=== PATIENT | male | born 1955 | race African-American/Black ===

== ENCOUNTER 2018-01-20 07:22 | Inpatient (IN) | payer MEDICAID ==
[~2018-01-20] VITALS: Ht 182.9 cm; Wt 92.1 kg
[2018-01-20 07:24] VITALS: BP 175/107
--- NOTE | 2018-01-20 07:35 | NUR ---
PT AMBULATED TO ER BED 06
--- NOTE | 2018-01-20 07:40 | NUR ---
PT. CAME INTO THE ED W/ DUE TO R FOOT PAIN X 5 DAYS. PT. STATES " ON MONDAY I JUMPED OFF MY TRUCK AND FELT A ROCK POKE MY FOOT SINCE THEN IT STARTED SWELLING BUT YESTERDAY IT STARTED SWELLING MORE AND IT STARTED DRAINING". PT. HAS A CIRCULAR OPEN WOUND ON TOP OF FOOT IN BETWEEN GREAT TOE AND SECOND METATARSAL, PURULENT DRAINAGE NOTED. BOTTOM OF FOOT A PUNCTURE WOUND IS NOTED, NO DRAINAGE. PT. HAS 2+ NON PITTING SWELLING TO R FOOT, HOT TO TOUCH AND REDNESS ON TOP OF FOOT TO ANKLE. PT. ABLE TO WIGGLE TOES AND SENSATION INTACT. PT. DENIES ANY FEVERS OR DIZZINESS AT THIS TIME. ER MD NOTIFIED. WILL CONTINUE TO MONITOR.
[2018-01-20] MEDS ORDERED: CLINDAMYCIN 300 MG in DEXTROSE 5% 50 ML IV ONE (07:50)
[2018-01-20] MEDS ORDERED: LEVOFLOXACIN 500 MG/D5W PREMIX 100 ML IV ONE (07:50)
[2018-01-20] MEDS ORDERED: NACL 0.9% 1,000 ML IV SCH (07:50)
[2018-01-20] MEDS ORDERED: KETOROLAC 30 MG/ML VIAL IVP ONE (07:50)
[2018-01-20] MEDS ORDERED: CLINDAMYCIN 600 MG/4 ML VIAL ONE (08:17)
[2018-01-20 08:22] LABS: BASOPHILS % (AUTO) 0.3 % (0.0-2.0); EOSINOPHILS # (AUTO) 0.1 K/uL (0-0.4); EOSINOPHILS % (AUTO) 1.6 % (0.0-4.0); HEMATOCRIT 31.4 % (36-52); HEMOGLOBIN 10.1 g/dL (12.0-18.0); LYMPHOCYTES # (AUTO) 1.1 K/uL (2.0-11.5); LYMPHOCYTES % (AUTO) 16.7 % (20.5-51.1); MEAN CORPUSCULAR HEMOGLOBIN 29 pg (27-31); MEAN CORPUSCULAR HGB CONC 32 g/dL (33-37); MONOCYTES # (AUTO) 0.6 K/uL (0.8-1.0); MONOCYTES % (AUTO) 8.7 % (1.7-9.3); NEUTROPHILS # (AUTO) 4.9 K/uL (1.8-7.7); NEUTROPHILS % (AUTO) 72.7 % (42.2-75.2); PLATELET COUNT (AUTO) 203 K/uL (140-450); RED BLOOD CELL COUNT(AUTO) 3.52 MIL/uL (4.20-6.10); RED CELL DISTRIBUTION WIDTH 15.1 % (11.6-13.7); WHITE BLOOD COUNT (AUTO) 6.8 K/uL (4.8-10.8)
[2018-01-20 08:36] LABS: ANION GAP 11.5 (8-16); CARBON DIOXIDE 26.9 mmol/L (21-32); CREATININE 1.2 mg/dL (0.7-1.3); POTASSIUM 4.4 mmol/L (3.5-5.1)
[2018-01-20 08:41] LABS: PROTHROMBIN TIME 10.6 secs (10.8-13.4)
[2018-01-20 08:42] LABS: ALBUMIN 2.7 g/dL (3.4-5.0); TOTAL BILIRUBIN 0.2 mg/dL (0.0-1.0)
--- NOTE | 2018-01-20 08:52 | NUR ---
pt. resting comfortably in bed, rr even and unlabored. pt. can not provide urine at this time, provided a cup of water. er md garcia notified. will continue to monitor.
[2018-01-20] MEDS ORDERED: IBUPROFEN 600 MG TAB PO PRN (09:25)
[2018-01-20] MEDS ORDERED: ACETAMINOPHEN 325 MG TAB PO PRN (09:25)
[2018-01-20] MEDS ORDERED: ZOLPIDEM 5 MG TAB PO PRN (09:25)
[2018-01-20] MEDS ORDERED: DOCUSATE SODIUM 100 MG GELCAP PO PRN (09:25)
[2018-01-20] MEDS ORDERED: LORazepam 2 MG/ML VIAL IM/IVP PRN (09:25)
[2018-01-20] MEDS ORDERED: ONDANSETRON 4 MG/2 ML VIAL IM/IVP PRN (09:25)
[2018-01-20] MEDS ORDERED: HYDROcodone/APAP 7.5/325 MG 1 TAB PO PRN (09:25)
[2018-01-20] MEDS ORDERED: METF500T PO (09:27)
[2018-01-20] MEDS ORDERED: LISI30TA6 PO (09:27)
--- NOTE | 2018-01-20 09:33 | NUR ---
B/P OF 183/102, PT. DENIES DIZZYNESS OR TREADWELL AT THIS TIME, OR VISUAL DISTURBANCES. ER MD THOMPSON NOTIFIED.
[2018-01-20] MEDS ORDERED: ENALAPRILAT 2.5 MG/2 ML VIAL IVP ONE (09:40)
--- NOTE | 2018-01-20 10:00 | NUR ---
PT. STILL UNABLE TO PROVIDE URINE, RR EVEN AND UNLABORED. PROVIDED WITH WATER. ER MD THOMPSON NOTIFIED.
--- NOTE | 2018-01-20 10:13 | NUR ---
Patient will be admitted to care of DR. CASTORENA . Admited to TELEMETRY . Will go to room 106A. Belongings list completed. Report to JORY TORRES .
--- NOTE | 2018-01-20 10:15 | NUR ---
PT ARRIVED FROM ER IN [facility], REPORT RECEIVED, PT AMBULATES FROM HALLWAY TO BED WITH STEADY GAIT, AAOX4, RESP EVEN UNALBORED, SKIN WARM DRY COLOR WNL, RIGHT FOOD WITH OPEN WOUND, S/P "STEPPED ON ROCK ON MONDAY" WHITE/YELLOW DRAINAGE NOTED ON TOP, DRY BLOOD ON BOTTOM, VITALS TABLE, PT ORIENTED TO ROOM AND FLOOR, CALL KRUEGER WITHIN REACH, RIGHT FOOT ELEVATED ON PILLOW, WILL CONTINUE TO MONITOR
[2018-01-20 10:30] VITALS: BP 180/110
[2018-01-20 10:36] LABS: AMYLASE 27 U/L (25-115); CHOL/HDL RATIO 2.1 (1-4.5); FREE T4 (FREE THYROXINE) 1.08 ng/dL (0.76-1.46); HDL CHOLESTEROL 50 mg/dL (40-60); LDL (CALC) 47 mg/dL (60-100); LIPASE 84 U/L (73-393); MAGNESIUM 1.8 mg/dL (1.8-2.4); PHOSPHORUS 3.3 mg/dL (2.5-4.9); THYROID STIMULATING HORMONE 1.04 uIU/mL (0.34-3.74); TRIGLYCERIDES 37 mg/dL (30-150)
--- NOTE | 2018-01-20 10:50 | NUR ---
MADE AWARE OF INCREASED BP 180/110
[2018-01-20] MEDS ORDERED: hydrALAZINE 20 MG/ML VIAL IVP SCH (11:00)
[2018-01-20] MEDS: NACL 0.9% 1,000 ML IV SCH ×2 (11:33→19:26)
--- NOTE | 2018-01-20 11:42 | NUR ---
PT RESTING COMFORTABLY IN NAD, RESP EVEN UNLABORED, STATES ON AND OFF PAIN 10/17, DENIES NEED FOR MEDICATION, BP REMAINS HIGH 190/110, HYDRALAZINE GIVEN IVP PER ORDER
[2018-01-20] MEDS ORDERED: DEXTROSE 50% 50 ML SYR IVP PRN (12:35)
[2018-01-20] MEDS ORDERED: INSULIN LISPRO SLIDING SCALE 100 UNITS/ML VIAL SUBQ PRN (12:35)
--- NOTE | 2018-01-20 12:35 | NUR ---
BP IMPROVED TO 162/98, PT DENIES PAIN, DENIES TREADWELL, DENIES OTHER DISCOFMORT, WILL CONTINUE TO MONITOR
[2018-01-20] MEDS ORDERED: LISI-420 PO (12:43)
[2018-01-20] MEDS ORDERED: LEVOFLOXACIN 750 MG/D5W PREMIX 150 ML IV SCH (13:00)
--- NOTE | 2018-01-20 13:30 | NUR ---
DR OCONNOR (PODIATRY) AT BEDSIDE
[2018-01-20 13:50] LABS: APPEARANCE,URINE CLEAR (CLEAR); BILIRUBIN,URINE NEGATIVE (NEGATIVE); BLOOD, URINE NEGATIVE (NEGATIVE); COLOR,URINE YELLOW (YELLOW); LEUKOCYTE ESTERASE ,URINE NEGATIVE (NEGATIVE); NITRITE, URINE NEGATIVE (NEGATIVE); PH,URINE 5.5 (5.0-9.0); UGLUCOSE NEGATIVE (NEGATIVE)
[2018-01-20 14:02] LABS: BENZODIAZEPINE, URINE NEG. ng/mL (NEG <=200); CANNABINOID, URINE NEG. ng/mL (NEG <=50); COCAINE, URINE NEG. ng/mL (NEG <=300); OPIATE, URINE NEG. ng/mL (NEG <=2000); PHENCYCLIDINE SCREEN,URINE NEG. ng/mL (NEG <=25)
[2018-01-20 14:10] LABS: BARBITURATE, URINE NEG. ng/ml (NEG <=200)
[2018-01-20] MEDS: CLINDAMYCIN PHOS 600MG/D5W PM 50 ML IV SCH ×2 (14:51→21:01)
[2018-01-20 16:00] VITALS: BP 163/99
[2018-01-20] MEDS: BLOOD GLUCOSE MONITORING 1 DEV DEV FS SCH ×2 (16:43→21:00)
--- NOTE | 2018-01-20 18:45 | NUR ---
PT WALKING AROUND IN HALLWAY WITH STEADY GAIT
--- NOTE | 2018-01-20 19:20 | NUR ---
REPORT GIVEN TO INSURANCE INSTRUCTOR, PT IN STABLE CONDITION.
--- NOTE | 2018-01-20 19:21 | NUR ---
RECEIVED REPORT FROM DAY SHIFT RN FOR CONTINUITY OF CARE. PT IS A/OX4, ON ROOM AIR. PT IS ABLE TO MAKE NEEDS KNOWN, ABLE TO FOLLOW COMMANDS. RESPIRATIONS EVEN AND UNLABORED AT THE MOMENT. PT IS S/P I&D ON RIGHT FOOT. DRESSING DRY AND INTACT. PT HAS 2G IV TO EACH LEFT AC, ASYMPTOMATIC, INTACT AND PATENT. DISCUSSED PLAN OF CARE WITH PT, PT VERBALIZED UNDERSTANDING. VITAL SIGNS WITHIN NORMAL LIMITS. PT STABLE, NO SIGNS OF DISTRESS NOTED AT THIS TIME. BED IN LOWEST POSITION, BED ALARM ON. CALL LIGHT WITHIN REACH, WILL CONTINUE TO MONITOR.
[2018-01-20 19:58] VITALS: BP 167/102
[2018-01-20] MEDS: metFORMIN 500 MG TAB PO SCH (21:01)
--- NOTE | 2018-01-20 21:03 | NUR ---
ADMINISTERED SCHEDULED MEDICATIONS, PT TOLERATED WELL.
[2018-01-21] VITALS: BP 184/106
--- NOTE | 2018-01-21 00:25 | NUR ---
BLOOD PRESSURE ELEVATED AT 184/106, OTHER VITAL SIGNS WITHIN NORMAL LIMITS. PT STABLE, NO SIGNS OF DISTRESS NOTED AT THIS TIME. BED IN LOWEST POSITION, BED ALARM ON. CALL LIGHT WITHIN REACH. SPOKE TO DR PANIAGUA ABOUT BLOOD PRESSURE, DR PANIAGUA WILL ORDER BP MEDICATION.
[2018-01-21] MEDS ORDERED: HYDROCHLOROTHIAZIDE 25 MG TAB PO SCH ×3 (01:00→12:23)
--- NOTE | 2018-01-21 01:26 | NUR ---
ADMINISTERED ORDERED BLOOD PRESSURE MEDICATION, PT TOLERATED WELL.
--- NOTE | 2018-01-21 03:13 | NUR ---
PT STABLE, NO SIGNS OF DISTRESS NOTED AT THIS TIME. BED IN LOWEST POSITION, BED ALARM ON. CALL LIGHT WITHIN REACH, WILL CONTINUE TO MONITOR.
[2018-01-21 04:00] VITALS: BP 172/101
[2018-01-21] MEDS ORDERED: NIFEdipine 30 MG TABER PO SCH ×2 (04:00→13:30)
--- NOTE | 2018-01-21 04:03 | NUR ---
B/P STILL HIGH, OTHER VITAL SIGNS WITHIN NORMAL LIMITS. SPOKE TO DR PANIAGUA AND DR TAPIA ABOUT PT BLOOD PRESSURE. DR ORDERED MEDICATION FOR B/P. ADMINISTERED MEDICATION, PT TOLERATED WELL. PT STABLE, NO SIGNS OF DISTRESS NOTED AT THIS TIME. BED IN LOWEST POSITION, BED ALARM ON. CALL LIGHT WITHIN REACH, WILL CONTINUE TO MONITOR.
[2018-01-21] MEDS: CLINDAMYCIN PHOS 600MG/D5W PM 50 ML IV SCH ×3 (05:49→20:44)
[2018-01-21] MEDS: BLOOD GLUCOSE MONITORING 1 DEV DEV FS SCH ×4 (06:30→20:41)
--- NOTE | 2018-01-21 06:35 | NUR ---
SET UP NEW BAG OF IV FLUIDS.
--- NOTE | 2018-01-21 07:19 | NUR ---
ENDORSED PT TO DAY SHIFT RN FOR CONTINUITY OF CARE. PT IN STABLE CONDITION.
--- NOTE | 2018-01-21 07:20 | NUR ---
RECEIVED REPORT FROM PM NURSE AT THE BEDSIDE. INTRODUCED SELF AND UPDATED HIS BOARD. PT SLEEPING , DENIES PAIN. HAS LFT AC 20G IV , NS INFUSING @ 120 ML/HR. NO SIGN OF DISTRESS. HAS THE WOUND ON RT FOOT , I&D PERFORMED , BATCH TANK CONTROLLER CAME AND SAW THE PT, SAMPLE SENT TO THE LAB FOR CULTURE BY PREVIOUS SHIFT NURSE. WILL CONTINUE TO MONITOR THE PT.
[2018-01-21 07:57] VITALS: BP 170/104
[2018-01-21] MEDS ORDERED: LISINOPRIL 20 MG TAB PO SCH (09:00)
[2018-01-21] MEDS: LACTOBACILLUS RHAMNOSUS GG 1 EACH CAP PO SCH (09:20)
[2018-01-21] MEDS: metFORMIN 500 MG TAB PO SCH ×2 (09:20→20:45)
[2018-01-21] MEDS: LEVOFLOXACIN 750 MG/D5W PREMIX 150 ML IV SCH (09:41)
--- NOTE | 2018-01-21 09:52 | NUR ---
ADMINISTERED MEDS TO PT ORDERED. PT STABLE , NO SIGN OF DISTRESS. PT TOLERATED MEDS WELL. PT STATES THAT HIS WOUND WAS CHANGED THIS MORNING, DENIES ANY PAIN ON HIS FOOT. INSTRUCTED HIM TO USE THE CALL LIGHT TO ASK FOR HELP. WILL CONTINUE TO MONITOR THE PT.
--- NOTE | 2018-01-21 10:30 | NUR ---
CHECKED ON PT. LYING ON HIS BACK.ABX INFUSING WELL AT THIS TIME. NO SIGN OF DISTRESS . PT DENIES PAIN. PT ASKED TO TURN OFF LIGHT.WILL CONTINUE TO MONITOR THE PT.
--- NOTE | 2018-01-21 11:25 | NUR ---
CHECKED ON PT. BP 180/106. STUDENT NURSE STATES PT WENT TO REST ROOM AND CAME BACK.WILL RECHECK THE BP IN 15 MIN. FAMILY AT THE BEDSIDE. WILLCONTINUE TO MONITOR PT.
[2018-01-21 12:00] VITALS: BP 170/111
--- NOTE | 2018-01-21 12:50 | NUR ---
ADMINISTERED CLINDAMYCIN TO PT. TOLERATED WELL.NO SIGN OF DISTRESS. DENIES PAIN. ALL SAFETY MEASURE IN PLACE .WILL CONTINUE TO MONITOR PT.
[2018-01-21 16:00] VITALS: BP 162/98
--- NOTE | 2018-01-21 16:30 | NUR ---
CHECKED ON PT. STAYING ON BED. NO SIGN OF DISTRESS. HAD BRIEF WALK AROUND THE CASTRO , STATES HE FEELS BETTER AFTER HE HAD WALK. ADMINISTERED NIFEDIPINE 30 MG TO CONTROL HIS BP. DENIES PAIN. ALL SAFETY MEASURE IN PLACE. WILL CONTINUE TO MONITOR THE PT.
--- NOTE | 2018-01-21 19:00 | NUR ---
ENDORSED PT TO PM NURSE AT BEDSIDE. PT IN STABLE CONDITION.
[2018-01-21] MEDS: NACL 0.9% 1,000 ML IV SCH (19:26)
[2018-01-21 19:51] VITALS: BP 156/99
--- NOTE | 2018-01-21 20:45 | NUR ---
ADMINISTERED SCHEDULED MEDICATIONS, PT TOLERATED WELL.
[2018-01-22] VITALS: BP 159/98
--- NOTE | 2018-01-22 | NUR ---
VITAL SIGNS WITHIN NORMAL LIMITS. PT STABLE, NO SIGNS OF DISTRESS NOTED AT THIS TIME. BED IN LOWEST POSITION, BED ALARM ON. CALL LIGHT WITHIN REACH, WILL CONTINUE TO MONITOR.
[2018-01-22 04:10] VITALS: BP 162/102
[2018-01-22] MEDS: CLINDAMYCIN PHOS 600MG/D5W PM 50 ML IV SCH ×2 (04:20→13:00)
--- NOTE | 2018-01-22 04:22 | NUR ---
ADMINISTERED ORDERED MEDICATION FOR BP. PT TOLERATED WELL.
[2018-01-22] MEDS ORDERED: HYDROCHLOROTHIAZIDE 25 MG TAB PO SCH ×2 (05:00→09:00)
[2018-01-22] MEDS: BLOOD GLUCOSE MONITORING 1 DEV DEV FS SCH ×2 (06:09→11:47)
--- NOTE | 2018-01-22 06:12 | NUR ---
ENDORSED PT TO AUTOMATIC PAINT SPRAYER OPERATOR FOR CONTINUITY OF CARE. PT IN STABLE CONDITION.
--- NOTE | 2018-01-22 07:10 | NUR ---
RECEIVED PATIENT REPORT AT BEDSIDE. PATIENT AWAKE, ALERT AND ORIENTED. NO S/S OF DISTRESS NOTED. PATIENT DENIES PAIN AT THIS TIME. RIGHT FOOT ELEVATED ON A PILLOW. DRESSING ON THE RIGHT FOOT CLEAN, DRY AND INTACT. BED LOWERED WITH CALL LIGHT WITHIN REACH. WILL CONTINUE TO MONITOR
[2018-01-22] MEDS ORDERED: metFORMIN 500 MG TAB PO SCH (07:13)
[2018-01-22 07:35] LABS: BASOPHILS % (AUTO) 0.6 % (0.0-2.0); EOSINOPHILS # (AUTO) 0.2 K/uL (0-0.4); EOSINOPHILS % (AUTO) 3.1 % (0.0-4.0); HEMATOCRIT 33.5 % (36-52); HEMOGLOBIN 10.9 g/dL (12.0-18.0); LYMPHOCYTES # (AUTO) 1.6 K/uL (2.0-11.5); LYMPHOCYTES % (AUTO) 28.2 % (20.5-51.1); MEAN CORPUSCULAR HEMOGLOBIN 28 pg (27-31); MEAN CORPUSCULAR HGB CONC 32 g/dL (33-37); MEAN CORPUSCULAR VOLUME 87.8 fL (80-94); MONOCYTES # (AUTO) 0.5 K/uL (0.8-1.0); MONOCYTES % (AUTO) 8.6 % (1.7-9.3); NEUTROPHILS # (AUTO) 3.3 K/uL (1.8-7.7); NEUTROPHILS % (AUTO) 59.5 % (42.2-75.2); PLATELET COUNT (AUTO) 248 K/uL (140-450); RED BLOOD CELL COUNT(AUTO) 3.81 MIL/uL (4.20-6.10); RED CELL DISTRIBUTION WIDTH 14.4 % (11.6-13.7); WHITE BLOOD COUNT (AUTO) 5.6 K/uL (4.8-10.8)
[2018-01-22 07:54] VITALS: BP 158/99
[2018-01-22 08:17] LABS: MAGNESIUM 1.4 mg/dL (1.8-2.4); PHOSPHORUS 3.9 mg/dL (2.5-4.9)
[2018-01-22 08:19] LABS: ANION GAP 9.8 (8-16); CARBON DIOXIDE 27.9 mmol/L (21-32); CREATININE 1.1 mg/dL (0.7-1.3); POTASSIUM 3.7 mmol/L (3.5-5.1)
[2018-01-22] MEDS: LEVOFLOXACIN 750 MG/D5W PREMIX 150 ML IV SCH (08:21)
[2018-01-22] MEDS: LACTOBACILLUS RHAMNOSUS GG 1 EACH CAP PO SCH (08:22)
[2018-01-22] MEDS ORDERED: MAG SULF 2000 MG/WATER PREMIX 100 ML IV ONE (08:40)
[2018-01-22] MEDS ORDERED: LISINOPRIL 20 MG TAB PO SCH (09:00)
[2018-01-22] MEDS ORDERED: NIFEdipine 30 MG TABER PO SCH (09:00)
[2018-01-22] MEDS ORDERED: LEVO750T2 PO (09:06)
[2018-01-22] MEDS ORDERED: LISI-420 PO (09:06)
[2018-01-22] MEDS ORDERED: CLIN300C2 PO (09:06)
[2018-01-22] MEDS ORDERED: ADA30 PO (09:06)
[2018-01-22] MEDS ORDERED: LACT10CA PO (09:06)
[2018-01-22] MEDS ORDERED: ORE25 PO (09:06)
[2018-01-22] MEDS ORDERED: [UNRECOGNIZED DRUG - CODE] PO (09:06)
--- NOTE | 2018-01-22 09:15 | NUR ---
PT. WAS SEEN BY DR. OCONNOR FOR RIGHT FOOT DIABETIC ULCER, ORDER GIVEN NOT TO CHANGE DRESSING.AND SHE WILL FOLLOW UP WITH THE PT CARE.
--- NOTE | 2018-01-22 09:18 | NUR ---
PATIENT HAS BEEN SCREENED AND CATEGORIZED MODERATE NUTRITION RISK. PATIENT WILL BE SEEN WITHIN 3-5 DAYS OF ADMISSION. 01/22/18 01/24/[address]
[2018-01-22] MEDS: MAGNESIUM SULFATE 1GM in DEXTROSE 5% 100 ML PREMIX IV SCH ×2 (10:25→12:12)
--- NOTE | 2018-01-22 11:45 | NUR ---
PATIENT PROVIDED WITH CRUTCHES. PT ADJUSTED CRUTCHES FOR PATIENT'S HEIGHT
--- NOTE | 2018-01-22 11:55 | NUR ---
AWAKE AND ALERT RESPONSIVE TO TUNNEL KILN FIRER VERBAL COMMANDS TOLERATED INCENTIVE SPIROMETRY THERAPY WELL WITHOUT INCIDENT ENCOURAGED PATIENT WITH ACKNOWLEDGEMENT TO USE EVERY 1-2 HOURS WHILE AWAKE
--- NOTE | 2018-01-22 13:13 | NUR ---
CALLED [facility] AND WAS TOLD THAT [facility] IS DELIGATED FOR THIS PATIENT. INITIAL REVIEW FAXED ER REPORT, H&P CONSULT, PROGRESS NOTE AND DISCHARGE SUMMARY FAXED TO [facility] [phone] PHONE [phone].
--- NOTE | 2018-01-22 14:00 | NUR ---
PATIENT DISCHARGED TO HOME. DISCHARGE INSTRUCTIONS AND DISCHARGE PRESCRIPTIONS GIVEN. PATIENT VERBALIZED UNDERSTANDING. IV LINE DISCONTINUED. PATIENT LEFT WITH ALL HIS BELONGINGS AND DISCHARGE PAPERS. PATIENT LEFT IN STABLE CONDITION
--- NOTE | 2018-01-22 14:28 | NUR ---
P.T. NOTES P.T. MEJIA COMPLETED; NURSING TO AMBULATE PATIENT W/ CRUTCHES & R POST OP SHOE. Addendum: 01/22/18 at 1429 by Milena Thomas PT Amended: Links added.
== END 2018-01-22 14:00 | disposition home or self-care (01) | DRG 364 ==
LOC: MED 07:22 → MTU 09:25
PROVIDERS: ADMIT Family Medicine; ATTEND Family Medicine
PROC: 0J9Q0ZZ Drainage of Right Foot Subcutaneous Tissue and Fascia, Open Approach (ICD-10-PCS; principal; 2018-01-20)
PROC: 0JBQ0ZZ Excision of Right Foot Subcutaneous Tissue and Fascia, Open Approach (ICD-10-PCS; 2018-01-20)
PROC: 0J9Q0ZZ Drainage of Right Foot Subcutaneous Tissue and Fascia, Open Approach (ICD-10-PCS; 2018-01-20)
PROC: 0JCQ3ZZ Extirpation of Matter from Right Foot Subcutaneous Tissue and Fascia, Percutaneous Approach (ICD-10-PCS; 2018-01-20)
DX: E11.621 Type 2 diabetes mellitus with foot ulcer (principal); L97.519 Non-pressure chronic ulcer of other part of right foot with unspecified severity; E43 Unspecified severe protein-calorie malnutrition; E11.40 Type 2 diabetes mellitus with diabetic neuropathy, unspecified; L08.9 Local infection of the skin and subcutaneous tissue, unspecified; M79.5 Residual foreign body in soft tissue; D64.9 Anemia, unspecified; E11.65 Type 2 diabetes mellitus with hyperglycemia; I10 Essential (primary) hypertension; I16.0 Hypertensive urgency; L03.115 Cellulitis of right lower limb; Z68.27 Body mass index [BMI] 27.0-27.9, adult
CPT/HCPCS: 36415; 36600; 71045; 73620; 73630; 80048; 80053; 80305; 81003; 82140; 82150; 82550; 82553; 82803; 82948; 83036; 83605; 83690; 83735; 84100; 84134; 84439; 84443; 84484; 85025; 85610; 85730; 87040; 87070; 87075; 87081; 87086; 87205; 90471; 90715; 93005; 93925; 93970; 96365; 96375; 97535; 99285; J0360; J1815; J1885; J1956; J3490; J7030; J7060; Q0092

== ENCOUNTER 2018-01-29 10:33 | Inpatient (IN) | payer MEDICAID ==
[~2018-01-29] VITALS: Ht 182.9 cm; Wt 85.8 kg
[~2018-01-29 10:33] MED LIST: ADA30 PO; CLIN300C2 PO; LACT10CA PO; LEVO750T2 PO; LISI-420 PO; ORE25 PO; [UNRECOGNIZED DRUG - CODE] PO
[2018-01-29 10:42] VITALS: BP 139/91
--- NOTE | 2018-01-29 10:50 | NUR ---
PT AMBULATED TO ER BED9.
--- NOTE | 2018-01-29 11:00 | NUR ---
62/M PRESENT TO ER C/O RT FOOT PAIN x 6 DAYS. PT STATES HE STEPPED ON A NAIL 01/19/2018 AND WAS SEEN AT [facility]. PAIN 08/19. CLEAR DISCHARGE. NO REDNESS, NO SWELLING. ER MD MADE AWARE. PT POSITIONED FOR COMFORT. WILL CONTINURED TO MONITOR HX: DM AND HTN MEDS: METFORMIN 850MG, LISINOPRIL 20MG, NIFEDIPINE 30MG, LACTINEX , HCTZ 50MG, CLINDAMYCIN 300MG AND LEVAQUIN 500MG
--- NOTE | 2018-01-29 11:12 | NUR ---
Patient being evaluated by physician at bedside.
[2018-01-29] MEDS ORDERED: NACL 0.9% 2,000 ML IV SCH (11:27)
[2018-01-29] MEDS ORDERED: fentaNYL 0.05 MG/ML VIAL IVP ONE (11:30)
[2018-01-29] MEDS ORDERED: PIPERACILLIN/TAZOBACTAM 3.375 GM in DEXT 5% MINI-BAG PLUS 50 ML IV ONE (11:30)
--- NOTE | 2018-01-29 11:37 | NUR ---
EMT AT BEDSIDE FOR EKG
[2018-01-29] MEDS ORDERED: PIPERACILLIN/TAZOBACTAM 3.375 GM VIAL IV ONE (11:38)
--- NOTE | 2018-01-29 11:39 | NUR ---
XRAY AT BEDSIDE
[2018-01-29 12:13] LABS: HEMATOCRIT 33.5 % (36-52); RED BLOOD CELL COUNT(AUTO) 3.83 MIL/uL (4.20-6.10); WHITE BLOOD COUNT (AUTO) 4.5 K/uL (4.8-10.8)
[2018-01-29 12:14] LABS: BASOPHILS % (AUTO) 4.1 % (0.0-2.0); EOSINOPHILS # (AUTO) 0.1 K/uL (0-0.4); LYMPHOCYTES # (AUTO) 1.5 K/uL (2.0-11.5); LYMPHOCYTES % (AUTO) 32.4 % (20.5-51.1); MEAN CORPUSCULAR HEMOGLOBIN 29 pg (27-31); MEAN CORPUSCULAR HGB CONC 33 g/dL (33-37); MEAN CORPUSCULAR VOLUME 87.3 fL (80-94); MONOCYTES # (AUTO) 0.4 K/uL (0.8-1.0); MONOCYTES % (AUTO) 7.9 % (1.7-9.3); NEUTROPHILS # (AUTO) 2.3 K/uL (1.8-7.7); NEUTROPHILS % (AUTO) 53.6 % (42.2-75.2); PLATELET COUNT (AUTO) 305 K/uL (140-450); RED CELL DISTRIBUTION WIDTH 13.2 % (11.6-13.7)
[2018-01-29 12:15] LABS: BASOPHILS # (AUTO) 0.2 K/uL (0.00-0.22)
--- NOTE | 2018-01-29 12:20 | NUR ---
PT AWAKE AND ALERT AND ORIENTED RESTING IN NO APPEARENT DISTRESS
[2018-01-29 12:21] LABS: CARBON DIOXIDE 28.1 mmol/L (21-32); CREATININE 1.7 mg/dL (0.7-1.3); POTASSIUM 4.1 mmol/L (3.5-5.1); PROTHROMBIN TIME 11.3 secs (10.8-13.4)
[2018-01-29 12:26] LABS: TOTAL BILIRUBIN 0.2 mg/dL (0.0-1.0)
[2018-01-29] MEDS ORDERED: HYDROcodone/APAP 5/325 MG 1 TAB TAB PO PRN (13:40)
[2018-01-29] MEDS ORDERED: ZOLPIDEM 5 MG TAB PO PRN (13:40)
[2018-01-29] MEDS ORDERED: DOCUSATE SODIUM 100 MG GELCAP PO PRN (13:40)
[2018-01-29] MEDS: NACL 0.9% 1,000 ML IV SCH (13:40)
[2018-01-29] MEDS ORDERED: LORazepam 2 MG/ML VIAL IM/IVP PRN (13:40)
[2018-01-29] MEDS ORDERED: ACETAMINOPHEN 325 MG TAB PO PRN (13:40)
[2018-01-29] MEDS ORDERED: MORPHINE SULFATE 2 MG/ML SYR IVP PRN (13:40)
--- NOTE | 2018-01-29 14:00 | NUR ---
PT RESTING IN BED IN NO APPEARENT DISTRESS
--- NOTE | 2018-01-29 15:00 | NUR ---
Patient will be admitted to care of DR GURROLA . Admited to TELE . Will go to room 106 B . Belongings list completed. Report to LORNA CORLEY .
--- NOTE | 2018-01-29 15:05 | NUR ---
RECEIVED PT ON UNIT VIA VisibleGainsENDER, PT IS AAOX4, AMBULATORY, PT HAS IV ON HIS LEFT AC, PATENT, INTACT, FLUSHING WELL, PT HAS WOUND ON HIS RIGHT FOOT, NO S/S OF RESPIRATORY DISTRESS OR DISCOMFORT NOTED, PT ON RA, DISCUSSED PLAN OF CARE, PT VERBALIZED UNDERSTANDING, CALL LIGHT WITHIN REACH, WILL CONTINUE TO MONITOR.
[2018-01-29] MEDS ORDERED: DEXTROSE 50% 50 ML SYR IVP PRN (15:20)
[2018-01-29] MEDS ORDERED: INSULIN LISPRO SLIDING SCALE 100 UNITS/ML VIAL SUBQ PRN (15:20)
[2018-01-29 15:50] LABS: MAGNESIUM 1.6 mg/dL (1.8-2.4); PHOSPHORUS 3.7 mg/dL (2.5-4.9); THYROID STIMULATING HORMONE 1.52 uIU/mL (0.34-3.74)
[2018-01-29] MEDS ORDERED: LEVOFLOXACIN 750 MG/D5W PREMIX 150 ML IV SCH (16:00)
[2018-01-29] MEDS: PIPER/TAZO 3.375GM/D5W PREMIX 50 ML IV SCH ×2 (17:09→23:43)
[2018-01-29] MEDS: BLOOD GLUCOSE MONITORING 1 DEV DEV FS SCH ×2 (17:14→20:38)
[2018-01-29] MEDS ORDERED: PIPERACILLIN/TAZOBACTAM 3.375 GM in DEXTROSE 5% 50 ML IV ONE (18:00)
[2018-01-29] MEDS ORDERED: CLINDAMYCIN 300 MG in DEXTROSE 5% 50 ML IV SCH (18:00)
--- NOTE | 2018-01-29 19:20 | NUR ---
ENDORSED PT TO BUFFING WHEEL INSPECTOR NURSE FOR CONTINUITY OF CARE, PT STABLE AT THIS TIME.
--- NOTE | 2018-01-29 19:35 | NUR ---
RECEIVED REPORT FROM DAY SHIFT, PATIENT RESTING IN BED, NO S/S OF DISTRESS NOTED, RESPIRATION EVEN AND UNLABORED, ON ROOM AIR. IV PATENT AND INTACT, INFUSING FLUIDS WELL. DRESSING TO THE RT FOOT DRY AND INTACT, CALL LIGHT WITHIN REACH, SAFETY MEASURE ENSURED, WILL CONTINUE TO MONITOR.
[2018-01-29 20:00] VITALS: BP 147/97
[2018-01-29] MEDS ORDERED: NON-FORMULARY ITEM (Lisinopril 20 MG) PO SCH (21:00)
--- NOTE | 2018-01-30 00:46 | NUR ---
BP 168/102, HR 74, MADE DR. FISHER AWARE. WILL CONTINUE TO MONITOR.
[2018-01-30 00:50] VITALS: BP 168/102
[2018-01-30] MEDS ORDERED: METOPROLOL 25 MG TAB PO SCH (02:00)
--- NOTE | 2018-01-30 02:23 | NUR ---
LOPRESSOR 25MG ADMINISTERED ORDERED. PATIENT TOLERATED WELL. WILL CONTINUE TO MONITOR.
[2018-01-30 04:00] VITALS: BP 154/98
--- NOTE | 2018-01-30 04:02 | NUR ---
VITAL SIGNS STABLE, BP 154/98, HR 75, NO S/S OF DISTRESS NOTED, CALL LIGHT WITHIN REACH, SAFETY MEASURE ENSURED, WILL CONTINUE TO MONITOR.
[2018-01-30] MEDS: PIPER/TAZO 3.375GM/D5W PREMIX 50 ML IV SCH (05:52)
[2018-01-30] MEDS: NACL 0.9% 1,000 ML IV SCH (05:58)
--- NOTE | 2018-01-30 07:25 | NUR ---
ENDORSED PLAN OF CARE TO DAY SHIFT, PATIENT IS IN STABLE CONDITION.
--- NOTE | 2018-01-30 07:30 | NUR ---
RECEIVED REPORT FROM MACHINE STRAW HAT PRESSER NURSE, PT IS SLEEPING IN BED BUT EASILY AWAKEN, PT IS AAOX4, AMBULATORY, PT HAS IV ON HIS LEFT AC, PATENT, INTACT, FLUSHING WELL, NO S/S OF RESPIRATORY DISTRESS OR DISCOMFORT NOTED, PT DENIES PAIN AT THIS TIME, PT RIGHT FOOT IS WRAPPED WITH GAUZE AND JAYESH BANDAGE, DISCUSSED PLAN OF CARE WITH PT, PT VERBALIZED UNDERSTANDING, CALL LIGHT WITHIN REACH.
[2018-01-30] MEDS: BLOOD GLUCOSE MONITORING 1 DEV DEV FS SCH ×4 (07:38→21:06)
[2018-01-30 08:00] VITALS: BP 162/108
[2018-01-30 08:10] LABS: HEMATOCRIT 34.3 % (36-52); HEMOGLOBIN 11.3 g/dL (12.0-18.0); LYMPHOCYTES % (AUTO) 39.9 % (20.5-51.1); MEAN CORPUSCULAR HEMOGLOBIN 29 pg (27-31); MEAN CORPUSCULAR HGB CONC 33 g/dL (33-37); MEAN CORPUSCULAR VOLUME 88.2 fL (80-94); NEUTROPHILS % (AUTO) 48.2 % (42.2-75.2); PLATELET COUNT (AUTO) 286 K/uL (140-450); RED BLOOD CELL COUNT(AUTO) 3.89 MIL/uL (4.20-6.10); RED CELL DISTRIBUTION WIDTH 13.4 % (11.6-13.7); WHITE BLOOD COUNT (AUTO) 4.8 K/uL (4.8-10.8)
[2018-01-30 08:11] LABS: EOSINOPHILS % (AUTO) 2.5 % (0.0-4.0); MONOCYTES % (AUTO) 6.4 % (1.7-9.3)
[2018-01-30] MEDS ORDERED: NIFEdipine 30 MG TABER PO SCH (09:00)
[2018-01-30] MEDS: HYDROCHLOROTHIAZIDE 25 MG TAB PO SCH (09:28)
[2018-01-30] MEDS: LACTOBACILLUS RHAMNOSUS GG 1 EACH CAP PO SCH (09:29)
[2018-01-30] MEDS: NIFEdipine 60 MG TABER PO SCH (09:29)
--- NOTE | 2018-01-30 09:30 | NUR ---
DUE MEDICATION GIVEN, PT TOLERATED WELL, CALL LIGHT WITHIN REACH.
[2018-01-30 09:40] LABS: ANION GAP 12.8 (8-16); CARBON DIOXIDE 27.1 mmol/L (21-32); CREATININE 1.4 mg/dL (0.7-1.3); POTASSIUM 3.9 mmol/L (3.5-5.1)
--- NOTE | 2018-01-30 10:31 | NUR ---
PATIENT HAS BEEN SCREENED AND CATEGORIZED HIGH NUTRITION RISK. PATIENT WILL BE SEEN WITHIN 1-2 DAYS OF ADMISSION. 01/30/18 01/31/[address]
--- NOTE | 2018-01-30 12:05 | NUR ---
PT SLEEPING IN BED AT THIS TIME, CALL LIGHT IS WITHIN REACH.
--- NOTE | 2018-01-30 12:39 | NUR ---
FAXED INITIAL REVIEW TO [facility] [phone] PHONE [phone] SPOKE WITH JEFFERSON AT [facility] AND HE SAID THAT FAXED REVIEWS JUST TO [facility], NOT [facility].
[2018-01-30] MEDS ORDERED: CLINDAMYCIN 600 MG in DEXTROSE 5% 50 ML IV SCH (13:00)
[2018-01-30] MEDS: CLINDAMYCIN PHOS 600MG/D5W PM 50 ML IV SCH ×2 (13:10→21:32)
--- NOTE | 2018-01-30 14:56 | NUR ---
SPOKE WITH DR. TORRES. SHE SAID THEY ARE WAITING FOR THE CULTURES. DID NOT SEE CULTURE IN MICRO. I CALLED NILA CORLEY TO FOLLOW UP IF THE CULTURES WERE DONE.
--- NOTE | 2018-01-30 15:20 | NUR ---
CULTURE OF RIGHT FOOT COLLECTED AND TAKEN TO LAB.
[2018-01-30 16:00] VITALS: BP 130/85
--- NOTE | 2018-01-30 16:47 | NUR ---
01/30/18 RD INITIAL ASSESSMENT COMPLETED PLEASE REFER TO NUTRITION ASSESSMENT UNDER CARE ACTIVITY FOR ESTIMATED NUTRITIONAL NEEDS. 1. [facility] DIET TOLERATED 2. RECOMMEND LUISITO QD 3. RD TO FOLLOW-UP 2-5 DAYS, HIGH RISK ZACHARIAH GRIFFIN RD
--- NOTE | 2018-01-30 16:58 | NUR ---
PT. SEEN BY CLOTH FOLDER MACHINE , DRESSING IN PLACE, PT. WAS INSTRUCTED NO TO CHANGE DRESSING TILL NEXT VISIT. INFORMATION CONFIRMED WITH DR. VALDEZ AND STATE THAT PT ALREADY HAVE A FOLLOW UP APPOINTMENT WITH OUTPATIENT PODIATRY.
--- NOTE | 2018-01-30 17:00 | NUR ---
PT RESTING IN BED, WATCHING TV, NO DISTRESS NOTED, PT DENIES PAIN, CALL LIGHT IS WITHIN REACH.
--- NOTE | 2018-01-30 19:36 | NUR ---
ENDORSED PT TO PRODUCTION CONTROL SUPERVISOR NURSE FOR CONTINUITY OF CARE. PT STABLE AT THIS TIME.
--- NOTE | 2018-01-30 19:40 | NUR ---
RECEIVED REPORT FROM DAY SHIFT RN, PATIENT SITTING IN BED AND WATCHING TV, NO S/S OF DISTRESS NOTED, IV PATENT AND INTACT, INFUSING FLUID WELL. PLAN OF CARE DISCUSSED, PATIENT VERBALIZED UNDERSTANDING, CALL LIGHT WITHIN REACH, SAFETY MEASURE ENSURED, WILL CONTINUE TO MONITOR.
--- NOTE | 2018-01-30 21:35 | NUR ---
DUE MEDICATION GIVEN, PATIENT TOLERATED WELL. NO S/S OF DISTRESS NOTED, CALL LIGHT WITHIN REACH, SAFETY MEASURE ENSURE ENSURED, WILL CONTINUE TO MONITOR.
[2018-01-31] VITALS: BP 159/96
[2018-01-31] MEDS: NACL 0.9% 1,000 ML IV SCH (00:08)
--- NOTE | 2018-01-31 00:10 | NUR ---
PATIENT WAS SLEEPING, EASY TO AROUSE. NO S/S OF DISTRESS NOTED, CALL LIGHT WITHIN REACH, SAFETY MEASURE ENSURED, WILL CONTINUE TO MONITOR.
--- NOTE | 2018-01-31 04:40 | NUR ---
BP 156/96, HR 73, NO S/S OF DISTRESS NOTED, CALL LIGHT WITHIN REACH, SAFETY MEASURE ENSURED, WILL CONTINUE TO MONITOR.
[2018-01-31] MEDS: CLINDAMYCIN PHOS 600MG/D5W PM 50 ML IV SCH (05:20)
[2018-01-31] MEDS: BLOOD GLUCOSE MONITORING 1 DEV DEV FS SCH (05:30)
[2018-01-31 07:34] LABS: WHITE BLOOD COUNT (AUTO) 4.8 K/uL (4.8-10.8)
[2018-01-31 07:35] LABS: BASOPHILS % (AUTO) 4.2 % (0.0-2.0); EOSINOPHILS % (AUTO) 3.1 % (0.0-4.0); HEMATOCRIT 34.7 % (36-52); HEMOGLOBIN 11.2 g/dL (12.0-18.0); LYMPHOCYTES % (AUTO) 15.5 % (20.5-51.1); MEAN CORPUSCULAR HEMOGLOBIN 29 pg (27-31); MEAN CORPUSCULAR HGB CONC 32 g/dL (33-37); MEAN CORPUSCULAR VOLUME 88.2 fL (80-94); MONOCYTES % (AUTO) 5.6 % (1.7-9.3); NEUTROPHILS % (AUTO) 41.6 % (42.2-75.2); PLATELET COUNT (AUTO) 286 K/uL (140-450); RED BLOOD CELL COUNT(AUTO) 3.93 MIL/uL (4.20-6.10); RED CELL DISTRIBUTION WIDTH 13.4 % (11.6-13.7)
--- NOTE | 2018-01-31 07:43 | NUR ---
RECEIVED REPORT FROM GAMING HOST RN. PATIENT IS AAOX4, HAS NO SIGNS AND SYMPTOMS OF ACUTE DISTRESS NOTED AT THIS TIME. HAS IV TO THE LEFT AC 20G, INFUSING NS AT 60 ML/HR. SITE IS CLEAN, DRY, PATENT AND INTACT. DISCUSSED PLAN OF CARE WITH PATIENT AND HE VERBALIZED UNDERSTANDING. RIGHT FOOT HAS JAYESH BANDAGE. BED IN LOWEST POSITION, SIDE RAILS UP X2, CALL LIGHT WITHIN REACH. WILL CONTINUE TO MONITOR.
--- NOTE | 2018-01-31 07:43 | NUR ---
ENDORSED PLAN OF CARE TO DAY SHIFT RN, PATIENT IS IN STABLE CONDITION.
[2018-01-31 07:50] LABS: ANION GAP 10.6 (8-16); CARBON DIOXIDE 26.9 mmol/L (21-32); CREATININE 1.3 mg/dL (0.7-1.3); POTASSIUM 3.5 mmol/L (3.5-5.1)
[2018-01-31 08:00] VITALS: BP 141/88
[2018-01-31] MEDS ORDERED: CLIN300C2 PO (08:50)
[2018-01-31] MEDS ORDERED: SULF-58 PO ×2 (08:55→09:20)
[2018-01-31] MEDS ORDERED: ASCO1CAP75 PO (08:55)
[2018-01-31] MEDS: LACTOBACILLUS RHAMNOSUS GG 1 EACH CAP PO SCH (09:30)
[2018-01-31] MEDS: NIFEdipine 60 MG TABER PO SCH (09:31)
[2018-01-31] MEDS: HYDROCHLOROTHIAZIDE 25 MG TAB PO SCH (09:32)
--- NOTE | 2018-01-31 12:07 | NUR ---
FAXED CONCURRENT REVIEW TO [facility] INCLUDING DC SUMMARY [phone] PHONE [phone] TRACKING NUMBERT [id number]
--- NOTE | 2018-01-31 12:30 | NUR ---
PATIENT HAS DISCHARGE ORDER IN PLACE. EDUCATED PATIENT ON SIGNS AND SYMPTOMS OF INFECTION/DISTRESS TO SEEK EMERGENCY MEDICAL ATTENTION. INFORMED HIM OF THE PRESCRIPTION THAT HE HAS. ALSO INFORMED HIM OF MD'S INSTRUCTIONS. PATIENT VERBALIZED UNDERSTANDING. REMOVED IV FROM SITE, CATHETER INTACT. DRESSING CLEAN AND DRY. REMOVED ID BANDS. ALL BELONGINGS ARE WITH PATIENT. WILL WHEEL PATIENT OUT. PATIENT IS STABLE.
== END 2018-01-31 12:30 | disposition home or self-care (01) | DRG 380 ==
LOC: MED 10:33 → MTU 13:40
PROVIDERS: ADMIT General Practice; ATTEND General Practice
PROC: 0HDMXZZ Extraction of Right Foot Skin, External Approach (ICD-10-PCS; principal; 2018-01-30)
DX: E11.621 Type 2 diabetes mellitus with foot ulcer (principal); L97.519 Non-pressure chronic ulcer of other part of right foot with unspecified severity; N17.0 Acute kidney failure with tubular necrosis; E44.0 Moderate protein-calorie malnutrition; D68.59 Other primary thrombophilia; E87.2 Acidosis; E11.40 Type 2 diabetes mellitus with diabetic neuropathy, unspecified; L03.115 Cellulitis of right lower limb; E11.628 Type 2 diabetes mellitus with other skin complications; E11.65 Type 2 diabetes mellitus with hyperglycemia; I10 Essential (primary) hypertension; E11.69 Type 2 diabetes mellitus with other specified complication; B35.1 Tinea unguium; L84 Corns and callosities; L85.3 Xerosis cutis; Z79.2 Long term (current) use of antibiotics; Z79.899 Other long term (current) drug therapy; Z59.0 Homelessness; Z79.84 Long term (current) use of oral hypoglycemic drugs; Z68.25 Body mass index [BMI] 25.0-25.9, adult
CPT/HCPCS: 36415; 36600; 71045; 73630; 73700; 80048; 80053; 82550; 82553; 82803; 82948; 83036; 83605; 83690; 83735; 83874; 83880; 84100; 84134; 84443; 84484; 85025; 85610; 85730; 87040; 87070; 87075; 87081; 87205; 93005; 93926; 96361; 96365; 96375; 99285; J0696; J1815; J2543; J3010; J3490; J7030; J7060; Q0092

== ENCOUNTER 2020-01-23 14:51 | Inpatient (IN) | payer MEDICAID, SELFPAY ==
[~2020-01-23] VITALS: Ht 190.5 cm; Wt 76.7 kg
[~2020-01-23 14:51] MED LIST changes: -ADA30 PO; +ASCO1CAP75 PO; -LEVO750T2 PO; +METF-336 PO; +NIFE-184 PO; +SULF-58 PO; -[UNRECOGNIZED DRUG - CODE] PO
--- NOTE | 2020-01-23 14:57 | NUR ---
JOSE HENNING ALS TO ER BED 08. RN EVALUATING AT BEDSIDE.
--- NOTE | 2020-01-23 14:57 | NUR ---
PT PLACED IN BED 8 BY EMS.
--- NOTE | 2020-01-23 15:00 | NUR ---
64 Y/O MALE BIBA FROM [facility] FOR ALTERED LEVEL OF CONSCIOUSNESS. PER EMS PT WAS LAST SEEN NORMAL BY STAFF AT FACILITY AROUND 0900. TYPICALLY A [facility] OF 7 AND UPON CHECKING ON PT HE WAS [facility] 4. PT AROUSABLE TO PAIN. PRESENTS ON 2L TRACH TO TBAR. PLACED ON ASSISTANT SERVICE MANAGER, PULSE OX, AND BP CUFF. RR EVEN AND UNLABORED. MEDHX: RESPIRATORY FAILURE, DM, HTN, QUADRAPLEGIC
[2020-01-23 15:03] VITALS: BP 113/68
[2020-01-23] MEDS ORDERED: ESCI5TAB GT ×2 (15:35→23:48)
[2020-01-23] MEDS ORDERED: MULT-1528 GT (15:35)
[2020-01-23] MEDS ORDERED: ROB1 GT ×3 (15:35→23:48)
[2020-01-23] MEDS ORDERED: LOV40I SUBQ (15:35)
[2020-01-23] MEDS ORDERED: ACET-2619 GT ×2 (15:35→23:48)
[2020-01-23] MEDS ORDERED: MIRABULK GT (15:35)
[2020-01-23] MEDS ORDERED: AMLO5TAB GT (15:35)
[2020-01-23] MEDS ORDERED: COLL30OI TP (15:35)
--- NOTE | 2020-01-23 15:53 | NUR ---
16FRENCH GAN REPLACED UPON ARRIVAL TO ER. 100 CC URINE COLLECTED FROM PT.
--- NOTE | 2020-01-23 15:54 | NUR ---
LAB AT BEDSIDE FOR BLOOD DRAW
--- NOTE | 2020-01-23 16:18 | NUR ---
PT TO CT VIA [facility]
--- NOTE | 2020-01-23 16:35 | NUR ---
PT RETURNED FROM CT VIA [facility]
[2020-01-23 16:39] LABS: BASOPHILS # (AUTO) 0.1 K/uL (0.00-0.22); BASOPHILS % (AUTO) 0.4 % (0.0-2.0); EOSINOPHILS % (AUTO) 0.1 % (0.0-4.0); HEMATOCRIT 20.3 % (36-52); LYMPHOCYTES # (AUTO) 1.4 K/uL (2.0-11.5); LYMPHOCYTES % (AUTO) 9.5 % (20.5-51.1); MEAN CORPUSCULAR HEMOGLOBIN 30 pg (27-31); MEAN CORPUSCULAR HGB CONC 32 g/dL (33-37); MEAN CORPUSCULAR VOLUME 91.1 fL (80-94); MONOCYTES # (AUTO) 0.5 K/uL (0.8-1.0); MONOCYTES % (AUTO) 3.7 % (1.7-9.3); NEUTROPHILS # (AUTO) 12.7 K/uL (1.8-7.7); NEUTROPHILS % (AUTO) 86.3 % (42.2-75.2); PLATELET COUNT (AUTO) 561 K/uL (140-450); RED BLOOD CELL COUNT(AUTO) 2.23 MIL/uL (4.20-6.10); RED CELL DISTRIBUTION WIDTH 17.8 % (11.6-13.7); WHITE BLOOD COUNT (AUTO) 14.7 K/uL (4.8-10.8)
[2020-01-23 16:53] LABS: RSV NEGATIVE (NEGATIVE)
[2020-01-23 16:54] LABS: ALBUMIN 1.3 g/dL (3.4-5.0); ANION GAP 9.7 (8-16); CARBON DIOXIDE 27.5 mmol/L (21-32); CREATININE 0.4 mg/dL (0.6-1.3); HEMOGLOBIN 6.6 g/dL (12.0-18.0); POTASSIUM 4.2 mmol/L (3.5-5.1); TOTAL BILIRUBIN 0.2 mg/dL (0.0-1.0)
--- NOTE | 2020-01-23 16:59 | NUR ---
HEMOGLOBIN 6.6 AND HEMATOCRIT 20.3-- CRITICAL VALUE RECEIVED FROM LAB. DR MICHELE MADE AWARE
--- NOTE | 2020-01-23 17:01 | NUR ---
RESTING WITH EYES CLOSED, AROUSABLE TO PAINFUL STIMULI. VSS. WILL CONTINUE TO MONITOR
[2020-01-23 17:05] LABS: PROTHROMBIN TIME 11.3 secs (10.8-13.4)
[2020-01-23 17:15] LABS: APPEARANCE,URINE SL CLOUDY (CLEAR); BILIRUBIN,URINE NEGATIVE (NEGATIVE); BLOOD, URINE NEGATIVE (NEGATIVE); COLOR,URINE YELLOW (YELLOW); LEUKOCYTE ESTERASE ,URINE 2+ (NEGATIVE); NITRITE, URINE NEGATIVE (NEGATIVE); UGLUCOSE NEGATIVE (NEGATIVE)
[2020-01-23 17:21] LABS: LACTATE DEHYDROGENASE 279 U/L (85-227)
[2020-01-23 17:23] LABS: C-REACTIVE PROTEIN QUANT 11.8 mg/dL (0.0-0.9)
[2020-01-23 17:51] LABS: RBC,URINE 0-5 /HPF (0-5); WBC,URINE 0-5 /HPF (0-5); YEAST,URINE Moderate /HPF (None Seen)
[2020-01-23] MEDS ORDERED: ONDANSETRON 4 MG/2 ML VIAL IVP PRN (18:35)
[2020-01-23] MEDS ORDERED: ACETAMINOPHEN 325 MG TAB PO PRN (18:35)
[2020-01-23] MEDS ORDERED: ALBUTEROL HFA MDI 90 MCG/ACTUATION 8 GM INH PRN (18:40)
[2020-01-23] MEDS ORDERED: BENZONATATE 100 MG CAPLF PO PRN (18:40)
[2020-01-23] MEDS ORDERED: DEXAMETHASONE 10 MG/ML VIAL IVP SCH (18:56)
[2020-01-23] MEDS ORDERED: AZITHROMYCIN 250 MG TAB PO SCH (18:56)
--- NOTE | 2020-01-23 19:00 | NUR ---
Consent signed per DR MICHELE agreeing to administration of blood. Blood has been type and crossmatched. Blood sent from blood bank. Information on unit of blood checked against patient wristband at bedside by two nurses. All information matches. Patient or responsible constitution party informed of potential complications associated with blood transfusion. Informed of possible transfusion reaction symptoms. Aware of need to notify nurse at once of itching, shortness of breath, flushing, feeling of impending doom, or other symptoms not previously present. Vital signs taken within 5 minutes prior to initiation of transfusion. RN will remain with patient for first 15 minutes of transfusion at which time vital signs will be re-assessed.
--- NOTE | 2020-01-23 19:18 | NUR ---
Pt report given to JORY ALDRIDGE. Transfer of care at this time.
--- NOTE | 2020-01-23 19:18 | NUR ---
Ruth mcdermott in [facility] - 01/23/20 at 1919 by [email or web address] RECIEVED REPORT FROM JORY ALVARADO. TRANSFER OF CARE AT THIS TIME.
--- NOTE | 2020-01-23 19:22 | NUR ---
RECIEVED REPORT FROM JORY ALVARADO. TRANSFER OF CARE AT THIS TIME.
--- NOTE | 2020-01-23 19:30 | NUR ---
PLEASE SEE BLOOD TRANSFUSION FORM FOR ALL VITALS DURING BLOOD TRANSFUSION.
[2020-01-23 20:02] LABS: FREE T4 (FREE THYROXINE) 1.18 ng/dL (0.76-1.46); MAGNESIUM 1.7 mg/dL (1.8-2.4); PHOSPHORUS 3.6 mg/dL (2.5-4.9); THYROID STIMULATING HORMONE 3.65 uIU/mL (0.34-3.74)
[2020-01-23] MEDS ORDERED: LACT10CA1 GT (20:06)
[2020-01-23] MEDS ORDERED: ASCO500T95 GT (20:06)
[2020-01-23] MEDS ORDERED: ZINC220C28 GT ×2 (20:06→23:48)
--- NOTE | 2020-01-23 21:11 | NUR ---
ADMITTED 64 MALE, VIA GURNEY FROM E.R. ENDORSED BY JORY ALDRIDGE. TRANSFERRED SAFELY TO BED. NON VERBAL. ON 02 AT 2LPM VIA T PIECE. TRACH NOTED. SATURATION OF 100%. IV SITE AT RT EJ WAS NOT PATENT, DISCONTINUED. RE-INSERTED A NEW IV SITE AT LFA 22 GAUGE, ATTEMPTED X2 WITH GOOD BLOOD RETURN, TOLERATED WELL, CONTINUED BLOOD TRANSFUSION, NO SIDE EFFECTS NOTED. V/S CHECKED AND RECORDED, MRSA SWAB DONE. TELE MONITOR ATTACHED, WOUND PHOTOS TAKEN AT E.R., BODY CHECKED DONE. I.R. FOR FULL THICKNESS WOUND DONE. GT SITE NOTED, INTACT, NO RESIDUAL NOTED. PLAN OF CARE WAS DISCUSSED. CALL LIGHT WITHIN REACH. WILL CONTINUE TO MONITOR.
--- NOTE | 2020-01-23 21:11 | NUR ---
Patient will be admitted to care of LINED. Admited to TELE. Will go to room 112B. Belongings list completed. Report to JORY HA.
--- NOTE | 2020-01-23 21:50 | NUR ---
PT SEEN AND ASSESSED. PT IS IN NO APPARENT RESPIRATORY DISTRESS AT THIS TIME. PT TRACH WITH SHILEY SIZE 7 XLT. PT ON T-PIECE, 2L O2 WITH SPO2 OF 100% AND COARSE BS ON AUSCULTATION. PRN TX NOT INDICATED AT THIS TIME. PT WAS INFORMED TO CALL FOR PRN TX IF EXPERIENCING SOB. WILL CONTINUE TO MONITOR PT.
--- NOTE | 2020-01-23 22:00 | NUR ---
BLOOD TRANSFUSION COMPLETED. NO S/E NOTED. V/S CHECKED AND RECORDED.
[2020-01-23] MEDS: NACL 0.9% 1,000 ML IV SCH (22:19)
--- NOTE | 2020-01-23 22:30 | NUR ---
HISTORY TAKEN FROM THE MOTHER OF PATIENT AARON CARR VIA TELEPHONE [phone], PATIENT IS NON VERBAL.
[2020-01-23] MEDS: guaiFENesin 600 MG TABER PO SCH (23:02)
[2020-01-23] MEDS: DOCUSATE SODIUM 100 MG GELCAP PO SCH (23:03)
[2020-01-23] MEDS ORDERED: DEXAMETHASONE 10 MG/ML VIAL ONE (23:20)
[2020-01-24] VITALS: BP 124/79
[2020-01-24] MEDS ORDERED: ACETAMINOPHEN 325 MG TAB GT PRN (00:25)
[2020-01-24] MEDS ORDERED: DEXTROSE 50% 50 ML SYR IVP PRN (00:25)
[2020-01-24] MEDS ORDERED: MAGNESIUM OXIDE 400 MG TAB PO ONE (00:45)
[2020-01-24] MEDS ORDERED: ACETAMINOPHEN 650 MG/20.3 ML UDC GT PRN (02:05)
[2020-01-24] MEDS ORDERED: MAGNESIUM OXIDE 400 MG TAB ONE (02:06)
[2020-01-24] MEDS ORDERED: PIPERACILLIN/TAZOBACTAM 3.375 GM VIAL IV ONE ×2 (02:17→05:29)
[2020-01-24] MEDS: PIPERACILLIN/TAZOBACTAM 3.375 GM in DEXTROSE 5% 50 ML IV SCH ×5 (02:24→23:11)
[2020-01-24 04:00] VITALS: BP 127/81
[2020-01-24] MEDS: NACL 0.9% 1,000 ML IV SCH ×3 (04:33→22:08)
[2020-01-24] MEDS: GLYCOPYRROLATE 1 MG TAB GT SCH ×3 (05:32→22:10)
[2020-01-24] MEDS: BLOOD GLUCOSE MONITORING 1 DEV DEV FS SCH ×4 (05:49→21:00)
--- NOTE | 2020-01-24 06:51 | NUR ---
PATIENT HAS BEEN SCREENED AND CATEGORIZED HIGH NUTRITION RISK. PATIENT WILL BE SEEN WITHIN 1-2 DAYS OF ADMISSION. 01/24/20 01/25/[address]
[2020-01-24 07:29] LABS: CHOL/HDL RATIO 4.9 (1-4.5)
--- NOTE | 2020-01-24 07:30 | NUR ---
PATIENT IS IN STABLE CONDITION, NO GT RESIDUAL, NO SOB. KEPT CLEAN, DRY AND COMFORTABLE. ENDORSED TO AM SHIFT RN FOR CONTINUITY OF CARE.
--- NOTE | 2020-01-24 07:31 | NUR ---
Received report from pm nurse Deb. Pt asleep in bed, respirations even & nonlabored with O2 @ 2L/min via trach to T-piece. GT intact with ongoing Glucerna 1.2 @ 20ml/h. Left forearm IV 22G intact with ongoing NS @ 100ml/hr. HOB elevated @ 35.
[2020-01-24 07:56] LABS: ALBUMIN 1.3 g/dL (3.4-5.0); ANION GAP 12.6 (8-16); CARBON DIOXIDE 26.8 mmol/L (21-32); CREATININE 0.5 mg/dL (0.6-1.3); MAGNESIUM 1.9 mg/dL (1.8-2.4); PHOSPHORUS 4.8 mg/dL (2.5-4.9); POTASSIUM 4.4 mmol/L (3.5-5.1); TOTAL BILIRUBIN 0.3 mg/dL (0.0-1.0)
[2020-01-24 08:00] VITALS: BP 122/64
[2020-01-24] MEDS ORDERED: AZITHROMYCIN 250 MG TAB PO SCH (09:00)
[2020-01-24] MEDS ORDERED: ZINC SULF 220 MG CAP PO SCH (09:00)
[2020-01-24] MEDS ORDERED: MULTIVIT TH IRON OTHER MIN GT SCH (09:00)
[2020-01-24] MEDS ORDERED: LACTOBACILLUS RHAMNOSUS GG GT SCH (09:00)
[2020-01-24] MEDS ORDERED: CRUSHER, PILL MC ONE (09:03)
[2020-01-24] MEDS: POLYETHYLENE GLYCOL 17 GM/PKT GT SCH (09:04)
[2020-01-24] MEDS: ASCORBIC ACID 500 MG TAB PO SCH (09:05)
[2020-01-24] MEDS: MULTIVITAMIN/MINERALS 1 TAB GT SCH (09:05)
[2020-01-24] MEDS: guaiFENesin 600 MG TABER PO SCH ×2 (09:05→22:09)
[2020-01-24] MEDS: DOCUSATE SODIUM 100 MG GELCAP PO SCH ×2 (09:05→22:08)
[2020-01-24] MEDS: VITAMIN D 400 IU TAB PO SCH (09:05)
[2020-01-24] MEDS: amLODIPine 5 MG TAB GT SCH (09:05)
[2020-01-24] MEDS: LACTOBACILLUS RHAMNOSUS GG 1 EACH CAP GT SCH ×2 (09:06→22:10)
[2020-01-24] MEDS: FLUCONAZOLE 100 MG/NS PREMIX 50 ML IV SCH (09:11)
--- NOTE | 2020-01-24 10:31 | NUR ---
HIDES SOAKER NOTE: Patient's Orientation Person Information Provided By [facility] Comments SW WAS UNABLE TO MEET PATIENT AT BEDSIDE. Lining Presser, Realtionship and Phone Number [facility] [phone] [facility] Power of Stitching Machine Setter No Does Patient Have a POLST No Identifying Problems No Social Work Triggers Is A Social Work Consult Needed No Mandate Report Filed No Explanation Of Identifying Problems PATIENT IS A 64-YEAR-OLD MALE ADMITTED FOR ENCEPHALOPATHY AND ANEMIA. PATIENT HAS PMHX OF DIABETES. Admitted From Home Shelter Facility [facility] - [phone] Pre-Admission Level Of Functioning Status Independent/Ambulatory Prior Resources/Services Used In Last 12 Months SNF Rehab/Skilled Prior DME Hospital Bed Patient Had Caregiver No Home Support No Caregiver Issues Financial Issues No Known Financial Issue Referral To The Financial Counselor Needed No Factors/Needs SNF/NH Placement Explanation And Or Other Factors Affecting/Possible DC Needs PATIENT IS [facility] AND ON A BED HOLD. Discharge Plan Comments TENTATIVE DISCHARGE PLAN IS FOR PATIENT TO RETURN TO [facility]. DC Plan Status Initiated Addendum: 01/27/20 at 1332 by Rudy DONALD AMENDMENT: PERSON TO NOTIFY: AARON BRUNO Silas - [phone]
--- NOTE | 2020-01-24 11:00 | NUR ---
GT residual = 10ml. GT feeding rate of Glucerna 1.2 increased from 20ml/hr to 30ml/hr. Pt resting in bed, awake, nonverbal, unable to follow simple commands. HOB kept elevated @ 35. Left forearm IV intact with ongoing NS @ 100ml/hr. [place] cath intact & draining clear yellow urine.
[2020-01-24 11:43] LABS: WHITE BLOOD COUNT (AUTO) 11.6 K/uL (4.8-10.8)
[2020-01-24 11:44] LABS: BASOPHILS % (AUTO) 0.3 % (0.0-2.0); HEMATOCRIT 29.3 % (36-52); HEMOGLOBIN 9.6 g/dL (12.0-18.0); LYMPHOCYTES % (AUTO) 6.9 % (20.5-51.1); MEAN CORPUSCULAR HEMOGLOBIN 30 pg (27-31); MEAN CORPUSCULAR HGB CONC 33 g/dL (33-37); MEAN CORPUSCULAR VOLUME 91.3 fL (80-94); MONOCYTES % (AUTO) 0.8 % (1.7-9.3); PLATELET COUNT (AUTO) 606 K/uL (140-450); RED BLOOD CELL COUNT(AUTO) 3.19 MIL/uL (4.20-6.10); RED CELL DISTRIBUTION WIDTH 17.5 % (11.6-13.7)
[2020-01-24 11:45] LABS: LYMPHOCYTES # (AUTO) 0.8 K/uL (2.0-11.5); MONOCYTES # (AUTO) 0.1 K/uL (0.8-1.0); NEUTROPHILS # (AUTO) 10.7 K/uL (1.8-7.7)
--- NOTE | 2020-01-24 11:55 | NUR ---
01/24/20 RD INITIAL ASSESSMENT COMPLETED PLEASE REFER TO NUTRITION ASSESSMENT UNDER CARE ACTIVITY FOR ESTIMATED NUTRITIONAL NEEDS. 1. RECOMMEND GLUCERNA 1.2 AT GOAL RATE OF 80 ML/HR - BEGIN AT 20 ML/HR, INCREASE BY 20 ML Q6H UNTIL GOAL RATE REACHED -THIS WILL PROVIDE 2304 KCAL, 115 G PROTEIN (>75% OF PT ESTIMATED NEEDS) 2. CONTINUE FREE H20 FLUSH [address] TO FOLLOW-UP 2-3 DAYS, HIGH RISK JEYSON PINEDA RD
[2020-01-24 12:00] VITALS: BP 124/75
[2020-01-24] MEDS: INSULIN LISPRO SLIDING SCALE 100 UNITS/ML VIAL SUBQ PRN ×3 (12:27→22:44)
--- NOTE | 2020-01-24 15:00 | NUR ---
GT residual=0ml. GT feeding rate of Glucerna 1.2 increased from 30ml/hr to 40ml/hr. Pt is awake, nonverbal, no signs of distress. Trach to T-piece in place with O2 @ 2Lpm.
[2020-01-24 16:00] VITALS: BP 114/73
--- NOTE | 2020-01-24 19:30 | NUR ---
RECEIVED BEDSIDE ENDORSEMENT FROM AM SHIFT RN. PATIENT IS NON VERBAL, WITH O2 VIA T PIECE WITH SATURATION OF 99%. WITH ON GOING IVF AT 100 CC/HR, IV SITE AT LFA 22G, INTACT AND PATENT. WITH ON GOING FEEDING OF GLUCERNA 1.2 AT 50CC/HR. TOLERATED WELL WITH NO RESIDUAL NOTED. GT SITE INTACT. WITH INDWELLING GAN CATH DRAINING YELLOW URINE. WITH FULL THICKNESS WOUND ON SACROCOCCYX, COVERED WITH OPTIFOAM DRESSING. FALL RISK PROTOCOL IN PLACE, DROPLET PRECAUTION OBSERVED. LEFT KNEE WOUND NOTED WITH DRY DRESSING INTACT. TELE MONITOR ATTACHED. PLAN OF CARE WAS DISCUSSED. CALL LIGHT WITHIN REACH. WILL CONTINUE TO MONITOR.
[2020-01-24 20:00] VITALS: BP 120/76
[2020-01-24] MEDS ORDERED: ESCITALOPRAM 20 MG TAB GT SCH (21:00)
[2020-01-24] MEDS: ESCITALOPRAM 20 MG TAB PO SCH (22:09)
[2020-01-24] MEDS: ZINC SULF 220 MG CAP GT SCH (22:09)
--- NOTE | 2020-01-24 23:26 | NUR ---
RECEIVED REPORT FROM EMILY THAT PATIENT IS COVID 19 NEGATIVE, NOTED.
[2020-01-25] VITALS: BP 112/69
--- NOTE | 2020-01-25 03:00 | NUR ---
PATIENT IS SLEEPING, NO SOB NOTED
[2020-01-25 04:00] VITALS: BP 116/71
--- NOTE | 2020-01-25 04:00 | NUR ---
PATIENT CARE DONE, KEPT CLEAN, DRY AND COMFORTABLE, REPOSITIONED.
[2020-01-25] MEDS: GLYCOPYRROLATE 1 MG TAB GT SCH ×3 (05:20→21:53)
[2020-01-25] MEDS: PIPERACILLIN/TAZOBACTAM 3.375 GM in DEXTROSE 5% 50 ML IV SCH ×3 (05:20→17:59)
[2020-01-25] MEDS: BLOOD GLUCOSE MONITORING 1 DEV DEV FS SCH ×4 (05:23→21:58)
[2020-01-25] MEDS: INSULIN LISPRO SLIDING SCALE 100 UNITS/ML VIAL SUBQ PRN ×4 (05:25→22:01)
[2020-01-25 07:08] LABS: BASOPHILS % (AUTO) 0.3 % (0.0-2.0); HEMATOCRIT 23.1 % (36-52); HEMOGLOBIN 7.6 g/dL (12.0-18.0); LYMPHOCYTES # (AUTO) 0.8 K/uL (2.0-11.5); LYMPHOCYTES % (AUTO) 7.1 % (20.5-51.1); MEAN CORPUSCULAR HEMOGLOBIN 30 pg (27-31); MEAN CORPUSCULAR HGB CONC 33 g/dL (33-37); MONOCYTES # (AUTO) 0.4 K/uL (0.8-1.0); MONOCYTES % (AUTO) 3.6 % (1.7-9.3); NEUTROPHILS # (AUTO) 10.6 K/uL (1.8-7.7); PLATELET COUNT (AUTO) 646 K/uL (140-450); RED BLOOD CELL COUNT(AUTO) 2.53 MIL/uL (4.20-6.10); WHITE BLOOD COUNT (AUTO) 11.9 K/uL (4.8-10.8)
[2020-01-25 07:23] LABS: ANION GAP 12.1 (8-16); CARBON DIOXIDE 26.9 mmol/L (21-32); CREATININE 0.5 mg/dL (0.6-1.3)
--- NOTE | 2020-01-25 07:30 | NUR ---
PATIENT IS NOT IN ANY DISTRESS, STABLE. NO GT RESIDUAL. ENDORSED TO AM SHIFT RN FOR CONTINUITY OF CARE.
--- NOTE | 2020-01-25 07:43 | NUR ---
RECEIVED REPORT FROM ERMA, JORY HA. PT IS APHASIC. C/O ALOC. ENCEPHALOPATHY. DX ANEMIA. HX OF RESPIRATORY FAILURE, HTN, QUADRIPLEGIC, ALS, AND CACHEXIA. COVID NEGATIVE. PRBC GIVEN. CONTINUE TO MONITOR HGB. WOUND CONSULT. LT FOREARM 22G RUNNING 100ML/HR NS.
[2020-01-25 08:00] VITALS: BP 103/72
[2020-01-25] MEDS: LACTOBACILLUS RHAMNOSUS GG 1 EACH CAP GT SCH ×2 (08:32→21:54)
[2020-01-25] MEDS: POLYETHYLENE GLYCOL 17 GM/PKT GT SCH (08:32)
--- NOTE | 2020-01-25 08:32 | NUR ---
PT WAS GIVEN THE SCHEDULED AM MEDICATIONS, NO SIGN OF DISTRESS NOTED AND WILL MONITOR PT.
[2020-01-25] MEDS: VITAMIN D 400 IU TAB PO SCH (08:34)
[2020-01-25] MEDS: ASCORBIC ACID 500 MG TAB PO SCH (08:34)
[2020-01-25] MEDS: DOCUSATE SODIUM 100 MG GELCAP PO SCH ×2 (08:34→21:52)
[2020-01-25] MEDS: MULTIVITAMIN/MINERALS 1 TAB GT SCH (08:35)
[2020-01-25] MEDS: amLODIPine 5 MG TAB GT SCH (08:39)
[2020-01-25] MEDS: guaiFENesin 600 MG TABER PO SCH ×2 (08:50→21:53)
[2020-01-25] MEDS: FLUCONAZOLE 100 MG/NS PREMIX 50 ML IV SCH (09:10)
--- NOTE | 2020-01-25 10:40 | NUR ---
PT WAS REPOSITIONED AND WAS CLEANED AND WOUND ASSESSMENT AND REINFORCEMENT DONE. NO SIGN OF DISTRESS NOTED AND WILL MONITOR PT.
[2020-01-25] MEDS: NACL 0.9% 1,000 ML IV SCH ×2 (10:57→20:33)
--- NOTE | 2020-01-25 11:37 | NUR ---
INSULIN 4 UNITS WAS GIVEN ON THE RT UA FOR BLOOD GLUCOSE OF 207, IVPB ZOSYN WAS ADMINISTERED WELL, NO SIGN OF DISTRESS NOTED AND WILL MONITOR PT.
[2020-01-25 12:00] VITALS: BP 107/68
--- NOTE | 2020-01-25 14:20 | NUR ---
PT IS RESTING AND NO SIGN OF DISTRESS NOTED, SUCTIONED AND SATURATION AT 98%. WILL MONITOR PT.
[2020-01-25 16:00] VITALS: BP 114/56
--- NOTE | 2020-01-25 16:26 | NUR ---
PT WAS GIVEN INSULIN ON THE RT UA FOR THE BLOOD GLUCOSE OF 234, WILL MONITOR PT.
--- NOTE | 2020-01-25 16:56 | NUR ---
DC PLANNING 64 YRS OLD MALE PATIENT WAS ADMITTED FROM [facility] WITH A DX OF ENCEPHALOPATHY, ANEMIA R/O COVID. PT HAS A HX OF RESP FAILURE WITH T BAR DYSPHAGIA G-TUBE HLD SACRAL ULCER AND FUNCTIONAL QUADRIPLEGIC. CXR SHOWED HAZY AIRSPACE OPACITY AT THE LEFT LUNG REPRESENT ATELECTASIS. CONSOLIDATION CT HEAD SHOWED ACUTE INTRACRANIAL HEMORRHAGE MASS-EFFECT . TRANSFUSED 1 UNIT OF PRBC. STARTED IVF, COCKTAIL FOR COVID-19 CONSULTED WITH [facility] ,ID AND WOUND CARE . DC PLAN TO GO BACK TO [facility] WHEN STABLE CM TO FOLLOW Addendum: 01/27/20 at 1702 by Kala Devlin DC PLANNING: BLOOD AND URINE CULTURE GREW PROTEUS ,ID CONSULT CONTINUE ZOSYN IV ABX AND WOUND CARE DC PLAN TO GO BACK TO [facility] CM TO FOLLOW Addendum: 01/28/20 at 1603 by Kala Devlin DC PLANNING: SEEN BY JESENIA RECOMMENDED TO CONTINUE CURRENT THERAPY ZOSYN FOR UTI SODIUM IMPROVING FROM 128 TO 135 HGB STABLE DC PLAN TO GO BACK TO [facility] WHEN STABLE CM TO FOLLOW. Addendum: 01/29/20 at 1142 by Kala Devlin DC PLANNING: FAXED ALL THE PAPER WORK AND CALLED [facility] SPOKE WITH MARISSA RHOADES PT CAN GO TO ROOM 119 A WILL ARRANGE TRANSPORT CM TO FOLLOW. Addendum: 01/29/20 at 1652 by Kala Devlin DC PLANNING [id number] ARE UNABLE TO TRANSPORT PT ARRANGED WITH [facility] [employer] FITNESS INSTRUCTOR TIME 5:15 NOTIFIED RIANNA CORLEY
--- NOTE | 2020-01-25 19:33 | NUR ---
TRANSFER OF CARE TO PM LEA CORLEY. PTS VS ARE STABLE. NO SIGNS OF DISTRESS.
--- NOTE | 2020-01-25 19:34 | NUR ---
RECD. RESTING IN BED, EYES CLOSED, APHASIC. OPENS EYES WHEN ASK QUESTIONS BUT WENT BACK TO SLEEP AGAIN. ON 02 AT 2 LITERS VIA T-PIECE, RESPIRATION EVEN AND UNLABORED. ON CONTINUOUS PULSE OXIMETER MONITORING, 02 SAT - 100%. IV NS AT 100 ML/HR INFUSING LEFT AC G22, ON CONTINUOUS GT FEEDING OF GLUCERNA AT 50 ML/HR, GT SITE DRY AND CLEAN. WITH SACRAL WOUND AND LEFT LATERAL SIDE OF LEG BEHIND THE KNEE WOUND, BOTH COVERED WITH DRESSING DRY AND INTACT. F/C PATENT DRAINING CLEAR YELLOW URINE. PLAN OF CARE DISCUSSED. NO APPEARANCE OF PAIN NOTED, FLACC - 0.
--- NOTE | 2020-01-25 19:34 | NUR ---
Patient's Plan of Care was discussed and reviewed with COMMUNITY SERVICE AIDE:
[2020-01-25 20:00] VITALS: BP 130/76
--- NOTE | 2020-01-25 20:00 | NUR ---
WITH MODERATE AMOUNT OF CREAMY PHLEGM, SUCTIONING DONE.
[2020-01-25] MEDS: ZINC SULF 220 MG CAP GT SCH (21:52)
[2020-01-25] MEDS: ESCITALOPRAM 20 MG TAB PO SCH (21:53)
--- NOTE | 2020-01-25 21:53 | NUR ---
DUE GT MEDICATIONS GIVEN, NO RESIDUAL, FEEDING TOLERATED WELL.
--- NOTE | 2020-01-25 23:00 | NUR ---
SUCTIONING DONE, WITH MODERATE AMOUNT OF CREAMY PHLEGM OBTAINED. NO SOB NOTED.
[2020-01-26] VITALS: BP 128/77
[2020-01-26] MEDS: PIPERACILLIN/TAZOBACTAM 3.375 GM in DEXTROSE 5% 50 ML IV SCH ×5 (00:19→23:31)
--- NOTE | 2020-01-26 02:00 | NUR ---
[id number] IN BED. SLEEPING ON HIS RIGHT SIDE.
[2020-01-26 04:00] VITALS: BP 131/83
--- NOTE | 2020-01-26 04:00 | NUR ---
STILL SLEEPING COMFORTABLY, NO SOB NOTED.
[2020-01-26] MEDS: GLYCOPYRROLATE 1 MG TAB GT SCH ×3 (05:09→21:18)
[2020-01-26] MEDS: BLOOD GLUCOSE MONITORING 1 DEV DEV FS SCH ×4 (06:04→20:23)
[2020-01-26] MEDS: INSULIN LISPRO SLIDING SCALE 100 UNITS/ML VIAL SUBQ PRN ×4 (06:08→20:26)
[2020-01-26] MEDS: NACL 0.9% 1,000 ML IV SCH ×3 (06:33→23:37)
--- NOTE | 2020-01-26 07:20 | NUR ---
CONDITION REMAIN STABLE. ENDORSED TO AM SHIFT NURSE FOR CONTINUITY OF CARE.
--- NOTE | 2020-01-26 07:20 | NUR ---
RECEIVED CARE OF PT FROM JORY RITCHIE. PT IS STABLE. RESTING IN BED EYES CLOSED. RESPIRATIONS EVEN AND UNLABORED. GLUCERNA RUNNING 50ML. NS RUNNING 100ML. VS STABLE.
[2020-01-26 08:00] VITALS: BP 120/79
[2020-01-26 08:17] LABS: ANION GAP 8.7 (8-16); CARBON DIOXIDE 29.2 mmol/L (21-32); CREATININE 0.4 mg/dL (0.6-1.3); POTASSIUM 3.9 mmol/L (3.5-5.1)
[2020-01-26 08:24] LABS: BASOPHILS % (AUTO) 0.2 % (0.0-2.0); HEMATOCRIT 23.6 % (36-52); HEMOGLOBIN 7.8 g/dL (12.0-18.0); LYMPHOCYTES # (AUTO) 0.6 K/uL (2.0-11.5); MEAN CORPUSCULAR HEMOGLOBIN 30 pg (27-31); MEAN CORPUSCULAR HGB CONC 33 g/dL (33-37); MEAN CORPUSCULAR VOLUME 91.2 fL (80-94); MONOCYTES # (AUTO) 0.5 K/uL (0.8-1.0); MONOCYTES % (AUTO) 3.8 % (1.7-9.3); NEUTROPHILS # (AUTO) 12.1 K/uL (1.8-7.7); PLATELET COUNT (AUTO) 629 K/uL (140-450); RED BLOOD CELL COUNT(AUTO) 2.58 MIL/uL (4.20-6.10); RED CELL DISTRIBUTION WIDTH 17.7 % (11.6-13.7); WHITE BLOOD COUNT (AUTO) 13.2 K/uL (4.8-10.8)
[2020-01-26] MEDS: guaiFENesin 600 MG TABER PO SCH ×2 (08:51→21:19)
[2020-01-26] MEDS: MULTIVITAMIN/MINERALS 1 TAB GT SCH (08:51)
[2020-01-26] MEDS: LACTOBACILLUS RHAMNOSUS GG 1 EACH CAP GT SCH ×2 (08:51→21:18)
[2020-01-26] MEDS: VITAMIN D 400 IU TAB PO SCH (08:53)
[2020-01-26] MEDS: ASCORBIC ACID 500 MG TAB PO SCH (08:54)
[2020-01-26] MEDS: amLODIPine 5 MG TAB GT SCH (08:56)
[2020-01-26] MEDS: POLYETHYLENE GLYCOL 17 GM/PKT GT SCH (08:57)
--- NOTE | 2020-01-26 08:57 | NUR ---
PT WAS GIVEN THE SCHEDULED AM MEDICATIONS, NO RESIDUAL NOTED, NO SIGN OF DISTRESS NOTED AND WILL MONITOR PT
[2020-01-26] MEDS: DOCUSATE SODIUM 100 MG GELCAP PO SCH ×2 (09:14→21:19)
[2020-01-26] MEDS: FLUCONAZOLE 100 MG/NS PREMIX 50 ML IV SCH (09:14)
[2020-01-26 09:23] LABS: LYMPHOCYTES % (AUTO) 4.7 % (20.5-51.1); NEUTROPHILS % (AUTO) 91.3 % (42.2-75.2)
--- NOTE | 2020-01-26 10:40 | NUR ---
PT WAS REPOSITIONED AND CLEANED NOW.
--- NOTE | 2020-01-26 13:20 | NUR ---
WOUND ASSESSMENT WAS DONE TO PT, CLEANSED AND REINFORCED WITH DRESSING.
--- NOTE | 2020-01-26 13:33 | NUR ---
PT WAS GIVEN THE SCHEDULED MEDICATION NOW. WILL MONITOR PT.
[2020-01-26 16:00] VITALS: BP 112/72
--- NOTE | 2020-01-26 16:24 | NUR ---
PT WAS GIVEN INSULIN 2 UNITS IN THE RT UA FOR BLOOD GLUCOSE OF 163, WILL MONITOR PT.
--- NOTE | 2020-01-26 19:20 | NUR ---
RECEIVED PT FROM DAY RN. PT ON MEDSURG. NONVERBAL. TRACH TO T-PIECE. RESPIRATIONS EVEN AND UNLABORED. PT IS NON VERBAL. ON O2 AT 3LPM VIA T PIECE, O2 SAT 100%. ON BEDSIDE CONTINUOUS PULSE OX. IV SITE AT LEFT FA 22 GAUGE, ASYMPTOMATIC. IVF INFUSING NS AT 100 MLS/HR. G-TUBE FEEDING RUNNING GLUCERNA 1.2 AT 50 MLS/HR. GAN CATHETER DRAINING YELLOW URINE. BED ON LOW POSITION, SIDE RAILS UP X2. CALL LIGHT WITHIN REACH. COVID NEGATIVE X1. STANDARD ISOLATION. WILL CONTINUE TO MONITOR.
--- NOTE | 2020-01-26 19:25 | NUR ---
TRANSFER OF CARE TO PM ROBERT CORLEY. PT IS STABLE. VS STABLE. PT IS RESTING IN BED.
[2020-01-26 20:00] VITALS: BP 125/80
--- NOTE | 2020-01-26 20:30 | NUR ---
PT BLOOD GLUCOSE 183. ADMINISTERED 2 UNITS INSULIN PER MD. WILL CONTINUE TO MONITOR.
[2020-01-26] MEDS: ZINC SULF 220 MG CAP GT SCH (21:19)
[2020-01-26] MEDS: ESCITALOPRAM 20 MG TAB PO SCH (21:19)
--- NOTE | 2020-01-26 21:20 | NUR ---
ADMINISTERED SCHEDULED MEDICATIONS PER MD. PT TOLERATED WELL. WILL CONTINUE TO MONITOR.
--- NOTE | 2020-01-26 23:30 | NUR ---
PT ASLEEP IN BED. AROUSABLE TO VOICE AND LIGHT TOUCH. NO S/S OF RESPIRATORY DISTRESS. PT ON TRACH TO T-PIECE O2 3L, O2 SAT 100%. WILL CONTINUE TO MONITOR.
[2020-01-27] VITALS: BP 131/82
--- NOTE | 2020-01-27 01:30 | NUR ---
PT RESTING IN BED. EYES OPEN SPONTANEOUSLY TO VOICE. NO DISTRESS NOTED. WILL CONTINUE TO MONITOR.
[2020-01-27 04:00] VITALS: BP 121/74
--- NOTE | 2020-01-27 04:00 | NUR ---
PT REPOSITIONED. WOUND ASSESSMENT DONE. DRY AND INTACT. NO DISTRESS NOTED. WILL CONTINUE TO MONITOR
[2020-01-27] MEDS: PIPERACILLIN/TAZOBACTAM 3.375 GM in DEXTROSE 5% 50 ML IV SCH ×3 (05:04→17:22)
[2020-01-27] MEDS: GLYCOPYRROLATE 1 MG TAB GT SCH ×3 (05:04→21:02)
--- NOTE | 2020-01-27 06:00 | NUR ---
PT ASLEEP IN BED. OPENS EYES TO VOICE. NO DISTRESS NOTED. O2 SAT 100%. WILL CONTINUE TO MONITOR.
--- NOTE | 2020-01-27 07:20 | NUR ---
ENDORSED PT IN STABLE CONDITION TO DAY RN FOR CONTINUITY OF CARE.
--- NOTE | 2020-01-27 07:25 | NUR ---
RECEIVED BEDSIDE REPORT FROM NIGHTSHIFT NURSE. PT RESTING IN BED. FLACC 0. RESPIRATIONS EVEN AND UNLABORED WITH NO SOB OR RESPIRATORY DISTRESS. SKIN WARM AND DRY TO TOUCH. IV SITE IN LFA 22G IS CLEAN, DRY, AND INTACT. SAFETY MEASURES IN PLACE. WILL CONTINUE TO MONITOR
[2020-01-27 07:41] LABS: ANION GAP 8.8 (8-16); CARBON DIOXIDE 28.4 mmol/L (21-32); CREATININE 0.5 mg/dL (0.6-1.3); POTASSIUM 4.2 mmol/L (3.5-5.1)
[2020-01-27 08:00] VITALS: BP 130/79
[2020-01-27 08:01] LABS: BASOPHILS % (AUTO) 0.2 % (0.0-2.0); HEMATOCRIT 21.4 % (36-52); HEMOGLOBIN 7.1 g/dL (12.0-18.0); LYMPHOCYTES # (AUTO) 1.4 K/uL (2.0-11.5); LYMPHOCYTES % (AUTO) 11.1 % (20.5-51.1); MEAN CORPUSCULAR HEMOGLOBIN 30 pg (27-31); MEAN CORPUSCULAR HGB CONC 33 g/dL (33-37); MEAN CORPUSCULAR VOLUME 91.6 fL (80-94); MONOCYTES # (AUTO) 0.6 K/uL (0.8-1.0); MONOCYTES % (AUTO) 4.7 % (1.7-9.3); NEUTROPHILS # (AUTO) 10.2 K/uL (1.8-7.7); PLATELET COUNT (AUTO) 596 K/uL (140-450); RED BLOOD CELL COUNT(AUTO) 2.34 MIL/uL (4.20-6.10); RED CELL DISTRIBUTION WIDTH 17.7 % (11.6-13.7); WHITE BLOOD COUNT (AUTO) 12.2 K/uL (4.8-10.8)
[2020-01-27] MEDS: BLOOD GLUCOSE MONITORING 1 DEV DEV FS SCH ×4 (08:21→21:00)
[2020-01-27] MEDS: guaiFENesin 600 MG TABER PO SCH ×2 (08:28→21:00)
[2020-01-27] MEDS: POLYETHYLENE GLYCOL 17 GM/PKT GT SCH (08:28)
[2020-01-27] MEDS: LACTOBACILLUS RHAMNOSUS GG 1 EACH CAP GT SCH ×2 (08:29→21:01)
[2020-01-27] MEDS: DOCUSATE SODIUM 100 MG GELCAP PO SCH ×2 (08:29→20:59)
[2020-01-27] MEDS: amLODIPine 5 MG TAB GT SCH (08:29)
[2020-01-27] MEDS: ASCORBIC ACID 500 MG TAB PO SCH (08:30)
[2020-01-27] MEDS: VITAMIN D 400 IU TAB PO SCH (08:30)
[2020-01-27] MEDS: MULTIVITAMIN/MINERALS 1 TAB GT SCH (08:30)
[2020-01-27] MEDS: INSULIN LISPRO SLIDING SCALE 100 UNITS/ML VIAL SUBQ PRN ×2 (08:42→12:10)
--- NOTE | 2020-01-27 08:57 | NUR ---
ADMINISTERED SCHED MED PRESCRIBED PER MD ORDER. PT TOLERATED WELL. PT APHASIC AND UNABLE TO RETURN DEMONSTRATION. SAFETY MEASURES IN PLACE. WILL CONTINUE TO MONITOR
--- NOTE | 2020-01-27 10:15 | NUR ---
SWABBED PT FOR COVID 19 PRESCRIBED PER MD ORDER. PT TOLERATED WELL. SPECIMEN SENT TO LAB. SAFETY MEASURES IN PLACE. WILL CONTINUE TO MONITOR
--- NOTE | 2020-01-27 11:15 | NUR ---
ADMINISTERED SCHED MED PRESCRIBED PER MD ORDER. PT TOLERATED WELL. PT APHASIC AND UNABLE TO RETURN DEMONSTRATION. SAFETY MEASURES IN PLACE. WILL CONTINUE TO MONITOR
--- NOTE | 2020-01-27 11:30 | NUR ---
PT BLOOD SUGAR IS 191. PRN INSULIN WILL BE ADMINISTERED WITH NEXT MEAL PRESCRIBED PER MD ORDER.
--- NOTE | 2020-01-27 12:13 | NUR ---
ADMINISTERED SCHED MED PRESCRIBED PER MD ORDER. PT TOLERATED WELL. PT APHASIC AND UNABLE TO RETURN DEMONSTRATION. SAFETY MEASURES IN PLACE. WILL CONTINUE TO MONITOR
[2020-01-27] MEDS: NACL 0.9% 1,000 ML IV SCH ×2 (12:38→23:08)
--- NOTE | 2020-01-27 12:52 | NUR ---
ADMINISTERED SCHED MED PRESCRIBED PER MD ORDER. PT TOLERATED WELL. PT APHASIC AND UNABLE TO RETURN DEMONSTRATION. SAFETY MEASURES IN PLACE. WILL CONTINUE TO MONITOR
--- NOTE | 2020-01-27 13:00 | NUR ---
[facility] FOR CONTINUITY OF CARE. PT IS STABLE
--- NOTE | 2020-01-27 13:00 | NUR ---
RECEIVED BEDSIDE REPORT FROM JORY ORTIZ FOR CONTINUOUS OF CARE.
--- NOTE | 2020-01-27 15:10 | NUR ---
PT REGURGITATE INTO TRACH, FEEDING STOPPED, NOTIFIED WILL CONTINUE TO MONITOR.
[2020-01-27 16:00] VITALS: BP 149/86
--- NOTE | 2020-01-27 16:19 | NUR ---
01/27/20 FOLLOW UP COMPLETED. PLEASE REFER TO NUTRITION ASSESSMENT UNDER CARE ACTIVITY FOR ESTIMATED NUTRITIONAL NEEDS. 1. RECOMMEND GLUCERNA 1.2 AT GOAL RATE OF 80 ML/HR BEGIN AT 20 ML/HR, INCREASE BY 20 ML Q6H UNTIL GOAL RATE REACHED. THIS WILL PROVIDE 2304 KCAL, 115 G PROTEIN (>75% OF PT ESTIMATED NEEDS) ONCE PT ABLE TO TOLERATE INCREASED RATE 2. CONTINUE FREE H20 FLUSH [address] TO FOLLOW-UP IN 2-3 DAYS PATIENT IS HIGH RISK. LIZZ BURNS RD
--- NOTE | 2020-01-27 17:07 | NUR ---
SNX PT MODERATE AMT OF THICK YELLOW SECRETIONS CHANGED BACTERIA FILTER AND TRACH ESCALERA
--- NOTE | 2020-01-27 17:22 | NUR ---
DUE MEDICATION ADMINISTERED, PT TOLERATED WELL, NO DISTRESS NOTED, CALL LIGHT WITHIN REACH, WILL CONTINUE TO MONITOR.
--- NOTE | 2020-01-27 19:22 | NUR ---
ENDORSED PT TO ESCORT CAR DRIVER NURSE SANDIP CORLEY FOR CONTINUOUS OF CARE.
--- NOTE | 2020-01-27 19:49 | NUR ---
Oncoming nurse received bedside report. Pts skin is warm and dry. Pt is trach to T-Piece with RR even and unlabored with no s/s of distress. FC is draining clear yellow urine. All safety precautions are in place with bed to lowest position and call light within reach. Will continue to monitor
[2020-01-27] MEDS: ESCITALOPRAM 20 MG TAB PO SCH (21:00)
[2020-01-27] MEDS: ZINC SULF 220 MG CAP GT SCH (21:01)
--- NOTE | 2020-01-27 21:02 | NUR ---
All scheduled meds given to pt. Will continue to monitor.
--- NOTE | 2020-01-27 23:45 | NUR ---
Rounding completed on pt. Pt resting. Will continue to monitor.
[2020-01-28] VITALS: BP 125/79
[2020-01-28] MEDS: PIPERACILLIN/TAZOBACTAM 3.375 GM in DEXTROSE 5% 50 ML IV SCH ×4 (00:09→17:52)
--- NOTE | 2020-01-28 03:56 | NUR ---
ROUNDED AND ASSESSED PT. PT RESTING QUIETLY WITH NO COMPLAINTS. G-TUBE FEEDING IN PLACE AND RUNNING AND FC DRAINING URINE. WILL CONTINUE TO MONITOR.
[2020-01-28] MEDS: GLYCOPYRROLATE 1 MG TAB GT SCH ×3 (05:17→21:08)
--- NOTE | 2020-01-28 05:30 | NUR ---
Pt repositioned throughout the night. Sacral wound was assessed, cleansed and re dressed with clean dressing. G-tube dressing changed. G-tube feeding running, pt tolerating well. Will continue to monitor.
[2020-01-28] MEDS: INSULIN LISPRO SLIDING SCALE 100 UNITS/ML VIAL SUBQ PRN ×3 (06:25→17:10)
[2020-01-28] MEDS: BLOOD GLUCOSE MONITORING 1 DEV DEV FS SCH ×4 (06:29→21:08)
--- NOTE | 2020-01-28 07:05 | NUR ---
RECEIVED PATIENT FROM ORTHOTICS TECHNICIAN NURSE FOR CONTINUITY OF CARE. APHASIC, AAOX1, TRACH TO T-PIECE. RESPIRATIONS EVEN AND UNLABORED WITH SAO2 AT 100%. BEDSIDE CONTINUOUS PULSE OX PRESENT. IV SITE AT LEFT FA 22 GAUGE, ASYMPTOMATIC. IVF INFUSING NS AT 100 MLS/HR. G-TUBE FEEDING RUNNING GLUCERNA 1.2 AT 50 MLS/HR. GAN CATHETER DRAINING YELLOW URINE. BED ON LOW POSITION, SIDE RAILS UP X2. CALL LIGHT WITHIN REACH. COVID NEGATIVE X1. STANDARD ISOLATION. WILL CONTINUE TO MONITOR.
--- NOTE | 2020-01-28 07:14 | NUR ---
ENDORSED PATIENT TO DAY SHIFT NURSE. PATIENT IN STABLE CONDITION.
[2020-01-28 07:30] LABS: BASOPHILS % (AUTO) 0.1 % (0.0-2.0); EOSINOPHILS % (AUTO) 0.1 % (0.0-4.0); HEMATOCRIT 22.5 % (36-52); HEMOGLOBIN 7.3 g/dL (12.0-18.0); LYMPHOCYTES # (AUTO) 1.2 K/uL (2.0-11.5); MEAN CORPUSCULAR HEMOGLOBIN 30 pg (27-31); MEAN CORPUSCULAR HGB CONC 33 g/dL (33-37); MEAN CORPUSCULAR VOLUME 92.2 fL (80-94); MONOCYTES # (AUTO) 0.4 K/uL (0.8-1.0); MONOCYTES % (AUTO) 2.9 % (1.7-9.3); NEUTROPHILS # (AUTO) 13.1 K/uL (1.8-7.7); NEUTROPHILS % (AUTO) 88.9 % (42.2-75.2); PLATELET COUNT (AUTO) 580 K/uL (140-450); RED BLOOD CELL COUNT(AUTO) 2.44 MIL/uL (4.20-6.10); RED CELL DISTRIBUTION WIDTH 18.1 % (11.6-13.7); WHITE BLOOD COUNT (AUTO) 14.8 K/uL (4.8-10.8)
[2020-01-28 07:43] LABS: ANION GAP 10.7 (8-16); CARBON DIOXIDE 28.3 mmol/L (21-32); CREATININE 0.4 mg/dL (0.6-1.3)
[2020-01-28 07:48] LABS: MAGNESIUM 1.8 mg/dL (1.8-2.4); PHOSPHORUS 2.4 mg/dL (2.5-4.9)
[2020-01-28 08:00] VITALS: BP 145/89
[2020-01-28] MEDS: VITAMIN D 400 IU TAB PO SCH (09:14)
[2020-01-28] MEDS: DOCUSATE SODIUM 100 MG GELCAP PO SCH ×2 (09:14→21:08)
[2020-01-28] MEDS: guaiFENesin 600 MG TABER PO SCH ×2 (09:14→21:08)
[2020-01-28] MEDS: POLYETHYLENE GLYCOL 17 GM/PKT GT SCH (09:15)
[2020-01-28] MEDS: ASCORBIC ACID 500 MG TAB PO SCH (09:15)
[2020-01-28] MEDS: MULTIVITAMIN/MINERALS 1 TAB GT SCH (09:15)
[2020-01-28] MEDS: amLODIPine 5 MG TAB GT SCH (09:15)
[2020-01-28] MEDS: LACTOBACILLUS RHAMNOSUS GG 1 EACH CAP GT SCH ×2 (09:15→21:09)
--- NOTE | 2020-01-28 09:50 | NUR ---
PATIENT CLEANED, CHANGED, AND TURNED. NO SIGNS OF DISTRESS NOTED. WILL CONTINUE TO MONITOR.
--- NOTE | 2020-01-28 11:44 | NUR ---
2 UNITS OF INSULIN GIVEN FOR BLOOD GLUCOSE OF 184. NO SIGNS OF DISTRESS NOTED. G-TUBE FEEDING IN PLACE WITH RESIDUALS OF 25. WILL CONTINUE TO MONITOR.
--- NOTE | 2020-01-28 13:10 | NUR ---
PATIENT CLEANED, CHANGED, AND TURNED. OPEN SACRAL WOUND NOTED AND CLEANED WITH NS AND DRIED WITH STERILE GAUZE, REINFORCED WITH OPTIFOAM DRESSING. NO SIGNS OF DISTRESS NOTED. WILL CONTINUE TO MONITOR.
[2020-01-28] MEDS: NACL 0.9% 1,000 ML IV SCH ×2 (13:16→17:52)
[2020-01-28 16:00] VITALS: BP 144/90
--- NOTE | 2020-01-28 17:08 | NUR ---
2 UNITS OF INSULIN GIVEN FOR BLOOD GLUCOSE OF 169. NO SIGNS OF DISTRESS NOTED. V/S TAKEN AND IS WNL. WILL CONTINUE TO MONITOR.
[2020-01-28] MEDS ORDERED: SODIUM PHOSPHATE 15 MMOLE in NACL 0.9% 250 ML IV ONE (18:15)
[2020-01-28] MEDS: SODIUM PHOS / POTASSIUM PHOS 1 PKT PDR PO SCH (18:41)
--- NOTE | 2020-01-28 19:20 | NUR ---
ENDORSED TO CUSTOMER SERVICE CONSULTANT NURSE FOR CONTINUITY OF CARE.
--- NOTE | 2020-01-28 20:00 | NUR ---
RECEIVED REPORT FROM DAY RN REGARDING THE PT FOR CONTINUITY OF CARE. RECEIVED PT LYING IN BED ASLEEP AND OPENS EYES AT TIMES. PT NON VERBAL, WITH TRACH CONNECTED TO T-BAR @ 3L, SATING 100%. NOT IN ANY DISTRESS. NO S/SX OF PAIN AT THIS TIME. IVF INFUSING ORDERED. GTF INFUSING ORDERED. NOTED 5 CC RESIDUAL ON GT. HOB ELEVATED TO PREVENT ASPIRATION.FALL PRECAUTION IMPLEMENTED. ALL SIDE RAILS UP. CALL LIGHT WITHIN REACH. WILL CONTINUE POC.
[2020-01-28] MEDS: ESCITALOPRAM 20 MG TAB PO SCH (21:08)
[2020-01-28] MEDS: ZINC SULF 220 MG CAP GT SCH (21:09)
--- NOTE | 2020-01-28 22:00 | NUR ---
ADMINISTERED ALL SCHEDULED MEDICATIONS THROUGH THE GT. 5 CC RESIDUAL NOTED ON GT. REPOSITIONED PT FOR COMFORT AND TO PREVENT MORE PRESSURE ULCER. SAFETY MEASURES IN PLACED.
[2020-01-29] VITALS: BP 159/96
--- NOTE | 2020-01-29 | NUR ---
REPOSITIONED PT. VITALS SIGNS CHECKED AND ITS STABLE, AFEBRILE SATING 100% ON 3L TRACH TO T- BAR. SUCTIONED PT PRN.
--- NOTE | 2020-01-29 02:00 | NUR ---
PT ASLEEP AT THIS TIME. NO SIGN AND SYMPTOMS OF DISTRESS NOTED. VISIBLE CHEST RISE AND FALL NOTED. SAFETY MEASURES IN PLACED.
--- NOTE | 2020-01-29 04:00 | NUR ---
PM CARE PROVIDED. CHANGED SACRAL WOUND DRESSING. REPOSITIONED PATIENT FOR COMFORT AND TO PREVENT PRESSURE SORE.
[2020-01-29] MEDS: PIPERACILLIN/TAZOBACTAM 3.375 GM in DEXTROSE 5% 50 ML IV SCH ×4 (05:41→11:48)
[2020-01-29] MEDS: GLYCOPYRROLATE 1 MG TAB GT SCH ×2 (05:41→12:38)
[2020-01-29] MEDS: INSULIN LISPRO SLIDING SCALE 100 UNITS/ML VIAL SUBQ PRN (05:54)
[2020-01-29] MEDS: BLOOD GLUCOSE MONITORING 1 DEV DEV FS SCH ×3 (06:02→17:07)
--- NOTE | 2020-01-29 06:27 | NUR ---
PATIENT STABLE. NO ACUTE EVENTS THROUGHOUT THE NIGHT. NOT IN ANY DISTRESS. BLOOD SUGAR 168. 2 UNITS HUMALOG GIVEN PER SLIDING SCALE. ALL NEEDS ATTENDED. WILL ENDORSE THE PT TO THE ONCOMING RN FOR CONTINUITY OF CARE.
--- NOTE | 2020-01-29 07:16 | NUR ---
RECEIVED REPORT FROM FACILITY ASSISTANT RN FOR CONTINUITY OF CARE. PT IS AAOX1, BEDBOUND AND UNABLE TO MAKE NEEDS KNOWN. PT HAS TRACH TO VENT WITH 3L O2 SATING WELL. PT SKIN IS NON-INTACT. PT HAS CLOSED WOUND TO THE LEFT CALF, 2 OPEN WOUNDS TO THE RIGHT KNEE, AND OPEN WOUND ON THE SACRAL AREA WITH OPTIFOAM IN PLACE. UNABLE TO DISCUSS POC WITH PT. ALL SAFETY MEASURES IN PLACE. BED IN LOW POSITION. WILL ROUND FREQUENTLY ON PT THROUGHOUT THE SHIFT.
[2020-01-29 07:31] LABS: ANION GAP 8.1 (8-16); CREATININE 0.3 mg/dL (0.6-1.3); POTASSIUM 4.1 mmol/L (3.5-5.1)
[2020-01-29 07:39] LABS: MAGNESIUM 1.6 mg/dL (1.8-2.4); PHOSPHORUS 2.9 mg/dL (2.5-4.9)
[2020-01-29 08:00] VITALS: BP 157/53
[2020-01-29 08:08] LABS: BASOPHILS % (AUTO) 0.4 % (0.0-2.0); EOSINOPHILS % (AUTO) 0.4 % (0.0-4.0); HEMOGLOBIN 7.9 g/dL (12.0-18.0); LYMPHOCYTES % (AUTO) 9.2 % (20.5-51.1); MEAN CORPUSCULAR HEMOGLOBIN 30 pg (27-31); MEAN CORPUSCULAR HGB CONC 33 g/dL (33-37); MEAN CORPUSCULAR VOLUME 91.7 fL (80-94); MONOCYTES # (AUTO) 0.3 K/uL (0.8-1.0); MONOCYTES % (AUTO) 2.6 % (1.7-9.3); NEUTROPHILS # (AUTO) 9.8 K/uL (1.8-7.7); NEUTROPHILS % (AUTO) 87.4 % (42.2-75.2); PLATELET COUNT (AUTO) 552 K/uL (140-450); RED BLOOD CELL COUNT(AUTO) 2.62 MIL/uL (4.20-6.10); RED CELL DISTRIBUTION WIDTH 17.6 % (11.6-13.7); WHITE BLOOD COUNT (AUTO) 11.3 K/uL (4.8-10.8)
--- NOTE | 2020-01-29 08:30 | NUR ---
PT SHOW NO DISTRESS AT THIS TIME, TRACH SECURED AND PATENT, WILL CONTINUE TO MONITOR.
[2020-01-29] MEDS: POLYETHYLENE GLYCOL 17 GM/PKT GT SCH (09:00)
[2020-01-29] MEDS: amLODIPine 5 MG TAB GT SCH (09:47)
[2020-01-29] MEDS: LACTOBACILLUS RHAMNOSUS GG 1 EACH CAP GT SCH (09:47)
[2020-01-29] MEDS: VITAMIN D 400 IU TAB PO SCH (09:47)
[2020-01-29] MEDS: DOCUSATE SODIUM 100 MG GELCAP PO SCH (09:47)
[2020-01-29] MEDS: MULTIVITAMIN/MINERALS 1 TAB GT SCH (09:47)
[2020-01-29] MEDS: SODIUM PHOS / POTASSIUM PHOS 1 PKT PDR PO SCH ×2 (09:47→12:39)
[2020-01-29] MEDS: guaiFENesin 600 MG TABER PO SCH (09:47)
[2020-01-29] MEDS: ASCORBIC ACID 500 MG TAB PO SCH (09:47)
--- NOTE | 2020-01-29 10:12 | NUR ---
MESSAGED REGARDING PT WOUND. I NOTIFIED HER THAT PT HAS LARGE OPEN WOUND ON SACRAL AREA. ALSO MENTIONED WOUND HAS FOUL ODOR AND AREAS OF WOUND BED LOOK ABNORMAL. AWAITING CALLBACK OR MESSAGE BACK FROM DR. GARCIA IN STABLE CONDITION AT THIS TIME. WILL CONTINUE TO ROUND FREQUENTLY ON PT.
[2020-01-29] MEDS ORDERED: PIPE1SOL IV (11:26)
[2020-01-29] MEDS ORDERED: ESCI20TA47 PO (11:26)
[2020-01-29] MEDS ORDERED: MAG SULF 2000 MG/WATER PREMIX 50 ML IV SCH (12:00)
--- NOTE | 2020-01-29 12:19 | NUR ---
PT RESTING IN BED. NO SIGNS OF DISTRESS OR PAIN AT THIS TIME. WILL CONTINUE TO ROUND FREQUENTLY ON PT.
--- NOTE | 2020-01-29 14:21 | NUR ---
PT RESTING COMFORTABLY. ALL NEEDS MET. WILL CONTINUE TO ROUND FREQUENTLY ON PT. BED IN LOW POSITION, CALL LIGHT WITHIN REACH.
[2020-01-29] MEDS: NACL 0.9% 1,000 ML IV SCH ×2 (14:33)
--- NOTE | 2020-01-29 15:57 | NUR ---
CALLED [facility] AND GAVE REPORT. GAVE REPORT TO RADHA SUB ACUTE [facility]OTA. AWAITING [facility] MACHINE OPERATOR TIME FOR THIS PT.
--- NOTE | 2020-01-29 17:45 | NUR ---
PT DC BACK TO [facility] FOR CONTINUITY OF CARE. PT PICKED UP BY [facility]. IV LEFT IN FOR CONTINUITY OF IV ABX THERAPY. PT LEFT WITH GAN DUE TO URINARY RETENTION. PT ALSO HAS G-TUBE FOR CONTINUITY OF TUBE FEEDING. PT HAD NO PERSONAL BELONGINGS TO TAKE BACK WITH HIM. PT LEFT IN STABLE CONDITION. [facility] NOTIFIED OF [facility] EST. PICK-UP TIME.
== END 2020-01-29 17:45 | DRG 720 ==
LOC: MED 14:51 → MTU 18:33 → EEVIPCON 18:33 → OBSVTOIN 01-25 10:53
PROVIDERS: ADMIT Family Medicine; ATTEND Family Medicine
DX: A41.9 Sepsis, unspecified organism (principal); N39.0 Urinary tract infection, site not specified; G93.41 Metabolic encephalopathy; E87.1 Hypo-osmolality and hyponatremia; L98.419 Non-pressure chronic ulcer of buttock with unspecified severity; L97.509 Non-pressure chronic ulcer of other part of unspecified foot with unspecified severity; R53.2 Functional quadriplegia; E43 Unspecified severe protein-calorie malnutrition; Z68.21 Body mass index [BMI] 21.0-21.9, adult; E11.9 Type 2 diabetes mellitus without complications; I50.9 Heart failure, unspecified; I11.0 Hypertensive heart disease with heart failure; E78.5 Hyperlipidemia, unspecified; D53.9 Nutritional anemia, unspecified; G98.8 Other disorders of nervous system; D47.3 Essential (hemorrhagic) thrombocythemia; Z03.818 Encounter for observation for suspected exposure to other biological agents ruled out; J96.10 Chronic respiratory failure, unspecified whether with hypoxia or hypercapnia; L89.159 Pressure ulcer of sacral region, unspecified stage
CPT/HCPCS: 99291; G0378; 36415; 36600; 70450; 71045; 80048; 80053; 81001; 82150; 82550; 82728; 82803; 82948; 83036; 83605; 83615; 83690; 83735; 83880; 84100; 84439; 84443; 84484; 85025; 85379; 85384; 85610; 85651; 85730; 86140; 86886; 86900; 86901; 86920; 87040; 87081; 87086; 87186; 87420; 87804; 93005; 93880; J0696; J1100; J1450; J2543; J3475; J7030; J7060; P9016; Q0092; U0003-CS